=== PATIENT | female | born 1990 | race Hispanic/Latino ===

== ENCOUNTER 2016-11-21 12:56 | Inpatient (IN) | payer MEDICAID ==
--- NOTE | 2016-11-21 15:02 | History and Physical Report ---
History of Present Illness Date of examination: 11/21/16 Date of admission: 11/21/2016 Chief complaint: 26 yo G4 at 29.2weeks presented via EMS with vaginal burning and pressure. History of present illness: 26 yo G4 at 29.2weeks presented via EMS with vaginal burning and pressure. Patient of [employer]. Pt was advised on last Tuesday to present to triage for FFN and pt was unable to do so. Her course is reportedly complicated by epilepsy and Reports seizure as late as yesterday. FFN pending. Nitrazine negative, negative pooling. Past History Past Medical History: hypertension, neurologic, seizure Past Surgical History: no surgical history Social history: no significant social history - Obstetrical History Expected Date of Delivery: 02/04/17 Actual Gestation: 29 Week(s) 3 Day(s) : 4 Medications and Allergies Allergies Allergy/AdvReac Type Severity Reaction Status Date / Time egg Allergy Hives Verified 11/22/16 01:56 milk Allergy Rash Verified 11/22/16 01:56 acetaminophen AdvReac Shortness Verified 11/22/16 01:56 [From Tylenol-Codeine] of Breath codeine phosphate AdvReac Shortness Verified 11/22/16 01:58 [From Tylenol-Codeine] of Breath Home Medications Medication Instructions Recorded Confirmed Last Taken Type Ferrous Sulfate [Feosol 325 MG tab] 325 mg PO BID #60 tablet 04/18/15 Unknown Rx HYDROcodone/APAP 5-325 [[place] 1 each PO Q6HR PRN #30 tablet 04/18/15 Unknown Rx 5/325] Ibuprofen [Motrin] 800 mg PO Q8HR PRN #30 tablet 04/18/15 Unknown Rx Review of Systems All systems: negative - Vital Signs Vital signs: Vital Signs Pulse Pulse Ox 87 98 11/21/16 13:01 11/21/16 13:01 Temp Pulse Resp BP Pulse Ox 64 141/77 99 11/21/16 14:30 11/21/16 13:02 11/21/16 14:30 - Physical Exam Cardiovascular: Regular rate Lungs: Positive: Normal air movement Vagina: Positive: normal moisture Uterus: Positive: enlarged - Obstetrical FHR: category 1 Uterine Contraction Monitor Mode: External Results Result Diagrams: 11/21/16 20:49 11/21/16 20:49 All other labs normal. Assessment and Plan A: IUP 29.2 weeks HX of MS, epilepsy Category 1 tracing No contractions P: Admit to [facility] Neuro consult [facility] consult NICU consult if delivery imminent FFN pending Consulted with Dr. Haywood who will assume care of patient
[2016-11-21] MEDS ORDERED: LACTATED RINGERS 500 ML IV ONE (15:36)
[2016-11-21] MEDS ORDERED: STADOL IV PRN (18:16)
[2016-11-21] MEDS ORDERED: MYLICON PO PRN (18:16)
[2016-11-21] MEDS ORDERED: TYLENOL PO PRN (18:16)
[2016-11-21] MEDS ORDERED: COLACE PO PRN (18:16)
[2016-11-21] MEDS ORDERED: MILK OF MAGNESIA PO PRN (18:16)
[2016-11-21] MEDS ORDERED: BENADRYL PO PRN (18:16)
[2016-11-21 21:09] LABS: Basophils % (Auto) 0.3 % (0.0-1.8); Eosinophils % (Auto) 1.8 % (0.0-4.3); Hematocrit 31.6 % (30.3-42.9); Hemoglobin 10.7 gm/dl (10.1-14.3); Mean Corpuscular HGB Conc 34 % (30-34); Mean Corpuscular Hemoglobin 35 pg (28-32); Mean Corpuscular Volume 102 fl (79-97); Platelet Count 116 K/mm3 (140-440); Red Cell Distribution Width 12.9 % (13.2-15.2); White Blood Count 8.1 K/mm3 (4.5-11.0)
[2016-11-21 21:22] LABS: Albumin 3.2 g/dL (3.9-5); Albumin/Globulin Ratio 1.3 %; Alkaline Phosphatase 78 units/L (35-129); Anion Gap 17 mmol/L; BUN/Creatinine Ratio 13.33; Blood Urea Nitrogen 4 mg/dL (7-17); Calcium 8.6 mg/dL (8.4-10.2); Carbon Dioxide 23 mmol/L (22-30); Chloride 103.8 mmol/L (98-107); Glucose 86 mg/dL (65-100); Potassium 3.5 mmol/L (3.6-5.0); Sodium 140 mmol/L (137-145); Total Protein 5.7 g/dL (6.3-8.2)
[2016-11-21 21:43] LABS: Alanine Aminotransferase < 5 units/L (7-56)
[2016-11-21] MEDS: PERCOCET 5/325 PO PRN (22:16)
[2016-11-21] MEDS: PROzac PO SCH (22:39)
[2016-11-21] MEDS: XANAX PO SCH (23:15)
[2016-11-21] MEDS: LACTATED RINGERS 1,000 ML IV SCH (23:15)
[2016-11-22 00:19] LABS: Bacteria,Urine 1+ /HPF (Negative); Bilirubin,Urine NEG (Negative); Blood,Urine NEG (Negative); Ketones,Urine NEG (Negative); Leukocyte Esterase,Urine SM (Negative); Nitrite,Urine NEG (Negative); Protein,Urine <15 mg/dL mg/dL (Negative); Urobilinogen,Urine < 2.0 mg/dL (<2.0)
--- NOTE | 2016-11-22 06:55 | Admit Criteria Form ---
Admission Criteria Documentation: OBSTETRIC AND GYNECOLOGIC DISEASE GRG Clinical Indications for Admission to Inpatient Care (Place 'X' for any and all applicable criteria): Hospital admission is needed for appropriate care of the patient because of 1 or more of the following (1)(2)(3): [ ]I. Hemodynamic instability, as indicated by 1 or more of the following (1)( 2)(3)(4)(5): [ ]a) Vital signs or other findings not as expected for chronic patient condition or baseline [ ]b) Instability indicated by 1 or more of the following: [ ]i) Hypotension [ ]ii) Symptomatic tachycardia unresponsive to treatment (eg, analgesia, fluids, sedation as indicated) [ ]iii) Inadequate perfusion indicated by 1 or more of the following: [ ]A. Lactic acidosis (greater than 2 mmol/ L) [ ]B. New abnormal capillary refill ( greater than 3 seconds) [ ]C. Reduced urine output [ ]D. New altered mental status [ ]iv) Orthostatic vital sign changes unresponsive to treatment (eg, fluids) [ ]v) Multiple IV fluid boluses required to maintain adequate blood pressure or perfusion [ ]vi) IV inotropic or vasopressor medication required to maintain adequate blood pressure or perfusion [ ]II. Obstetric infection requiring hospitalization indicated by 1 or more of the following(13)(14): [ ]a) Chorioamnionitis [ ]b) Endometritis (except mild endometritis) [ ]c) Pelvic abscess [ ]d) Peritonitis [ ]e) Septic pelvic thrombophlebitis [ ]III. Amniotic fluid or pulmonary embolism(4)(5)(6) [ ]IV. Suspected peritonitis or ectopic requiring monitoring beyond scope of 24 hours or observation care(7)(8) [ ]V. compromise requiring hospitalization indicated by ALL of the following(9)(10): [ ]a) compromise indicated by 1 or more of the following(11): [ ]i) Abnormal heart rate monitoring [ ]ii) Abnormal contraction stress test [ ]iii) Abnormal biophysical profile [ ]iv) Abnormal Doppler flow in vessels (ie, Doppler velocimetry) (12) [ ]b) Persistence of compromise indicators during evaluation and observation monitoring [ ]. Ovarian hyperstimulation syndrome requiring hospitalization[A] indicated by ALL of the following(15): [ ]a) Recent ovarian stimulation with gonadotropins, or evidence on ultrasound of spontaneous emergence of large number of ovarian follicles [ ]b) Evidence of severe ovarian hyperstimulation syndrome indicated by 1 or more of the following: [ ]i) Abdominal pain unresponsive to oral therapy [ ]ii) Acute respiratory distress syndrome [ ]iii) Electrolyte imbalance ( eg, hyponatremia, hyperkalemia) [ ]iv) Elevated liver enzymes [ ]v) Evidence of thromboembolism [ ]vi) Hemoconcentration (hematocrit greater than 45 % (0.45)) [ ]vii) Inability to maintain oral intake adequate to prevent hemoconcentration [ ]viii) Marked hypotension from baseline (eg, SBP 20 mmHg below patients usual pressure) [ ]ix) Oliguria or anuria [ ]x) Ovarian torsion [ ]xi) Pleural or pericardial effusion on x-ray or echocardiogram [ ]xii) Rapid increase in serum creatinine to greater than 1.2 mg/dL (106 micromoles/L) or creatinine clearance less than 50 mL/min/1.73m2 (0.84 mL/ sec/1.73m2) [ ]xiii) Ruptured ovarian cyst with hemorrhage [ ]xiv) Severe abdominal pain or peritoneal signs [ ]xv) Tense ascites that cannot be managed with paracentesis in outpatient setting [ ]VII.Pelvic infection requiring hospitalization indicated by 1 or more of the following (16): [ ]a) Outpatient treatment has failed or is not appropriate (eg, inpatient monitoring required) [ ]b) Pelvic abscess [ ]c) Surgical emergency cannot be excluded (eg, rigid abdomen) [ ]d) Vomiting precluding outpatient and observation care management VIII. loss complications requiring inpatient medical treatment indicated by 1 or more of the following (4)(7)(9): [ ]a) Fever [ ]b) Peritonitis [ ]c) Sepsis [ ]d) Severe abdominal pain [ ]IX. or patient requiring monitoring for severe heart failure, pulmonary disease, or other comorbid condition (eg, peripartum cardiomyopathy) (4)(17) [ ]X. patient with rupture of membranes requiring hospitalization indicated by ANY ONE of the following: [ ]a) Chorioamnionitis, cloudy amniotic fluid, or other evidence of infection [ ]b) compromise or other need for monitoring (11) [ ]c) Gestation longer than 23 weeks and ANY ONE of the following: [ ]i) Abnormal (noncephalic) presentation [ ]ii) Inadequate home environment (eg, home too far from hospital, unable to rapidly return to hospital) [ ]d) Temperature greater than 100.4 degrees F (38 degrees C)( oral) [ ]e) Threatened labor requiring monitoring beyond scope (eg, over 24 hours) of observation Care [ ] XI. complications, including severe lacerations, infections, or retained placenta (19) [ ] XII.Uterine bleeding with high-risk features indicated by ANY ONE of the following (4): [ ]a) Active major hemorrhage (eg, hemorrhage) [ ]b) Coagulopathy with active bleeding [ ]c) Gestational trophoblastic disease (eg, molar ) (20 ) [ ]d) (longer than 23 weeks) and ANY ONE of the following: [ ]i) Pain [ ]ii) Placental abruption, known or suspected [ ]iii) Placenta accrete, known or suspected(21) [ ]iv) Placenta previa, known or suspected [ ]v) Vasa previa [ ]e) Severe anemia [X]XIII. Obstetric or Gynecologic Disease, condition or symptom for which ANY ONE of the following: [ ]a) Emergency and observation care have failed or are not considered appropriate ( Also use General Criteria: Observation Care Criteria as appropriate) [ ]b) Presence of a General Admission Criteria or Pediatric General Admission Criteria The original [facility] [address] content created by [facility] has been revised. The portions of the content which have been revised are identified through the use of italic text or in bold, and [facility] has neither reviewed nor approved the modified material.All other unmodified content is copyright [facility]. Please see references footnoted in the original [facility] edition 2016 Admission Criteria Met: Yes
--- NOTE | 2016-11-22 07:37 | Progress Note ---
Assessment and Plan A: 26-year-old at 29+3 weeks with crampy lower abdominal pain -Cat 1 tracing -FFN neg P: -Consult to [facility] and Neuro already in place -Final disposition after review - Patient Problems (1) 29 weeks gestation of Current Visit: Yes Status: Acute (2) contractions Current Visit: Yes Status: Acute Subjective - Subjective Date of service: 11/22/16 Principal diagnosis: IUP at 29+3 wks Interval history: Assumed care of above patient. Essential history is a patient with 3 weeks of crampy lower abdominal pain. Patient claims pain relieved only by Percocet. She has a history of MS and seizure disorder, it appears she has not had a seizure episode in a while. It appears she does not have a neurologist. In triage, she is not manuel, fibronectin negative. BPP obtained 11/21/2016 has a score of 8 over 8 Patient reports: new complaints, no loss of fluid, no vaginal bleeding, no contractions Objective - Vital Signs Vital Signs: Vital Signs - 12hr 11/21/16 11/21/16 11/21/16 19:35 19:51 21:30 Temperature Pulse Rate 70 48 L Respiratory 18 Rate Blood Pressure 105/57 O2 Sat by Pulse 98 Oximetry 11/21/16 11/21/16 11/21/16 21:35 21:40 21:45 Temperature Pulse Rate 50 L 49 L 58 L Respiratory Rate Blood Pressure O2 Sat by Pulse 97 98 98 Oximetry 11/21/16 11/21/16 11/21/16 21:50 21:55 22:00 Temperature Pulse Rate 56 L 59 L 60 Respiratory Rate Blood Pressure O2 Sat by Pulse 100 100 99 Oximetry 11/21/16 11/21/16 11/21/16 22:07 22:12 22:16 Temperature Pulse Rate 57 L 58 L Respiratory 18 Rate Blood Pressure O2 Sat by Pulse 99 99 Oximetry 11/21/16 11/21/16 11/21/16 22:17 22:22 22:27 Temperature Pulse Rate 59 L 54 L 64 Respiratory Rate Blood Pressure O2 Sat by Pulse 99 100 99 Oximetry 11/21/16 11/21/16 11/21/16 22:32 23:02 23:07 Temperature Pulse Rate 64 63 68 Respiratory Rate Blood Pressure O2 Sat by Pulse 100 98 98 Oximetry 11/21/16 11/21/16 11/21/16 23:12 23:15 23:17 Temperature 98.9 F Pulse Rate 68 65 66 Respiratory Rate Blood Pressure 111/64 O2 Sat by Pulse 97 96 Oximetry 11/21/16 11/21/16 11/21/16 23:22 23:27 23:32 Temperature Pulse Rate 63 65 68 Respiratory Rate Blood Pressure O2 Sat by Pulse 97 97 96 Oximetry 11/21/16 11/21/16 11/21/16 23:37 23:42 23:47 Temperature Pulse Rate 59 L 58 L 60 Respiratory Rate Blood Pressure O2 Sat by Pulse 96 96 95 Oximetry 11/21/16 11/21/16 11/22/16 23:52 23:57 00:02 Temperature Pulse Rate 57 L 58 L 56 L Respiratory Rate Blood Pressure O2 Sat by Pulse 96 96 96 Oximetry 11/22/16 11/22/16 11/22/16 00:07 00:12 00:17 Temperature Pulse Rate 57 L 56 L 61 Respiratory Rate Blood Pressure O2 Sat by Pulse 95 96 95 Oximetry 11/22/16 11/22/16 11/22/16 00:22 00:27 00:32 Temperature Pulse Rate 59 L 60 61 Respiratory Rate Blood Pressure O2 Sat by Pulse 95 95 95 Oximetry 11/22/16 11/22/16 11/22/16 00:37 00:42 00:47 Temperature Pulse Rate 63 57 L 60 Respiratory Rate Blood Pressure O2 Sat by Pulse 95 95 95 Oximetry 11/22/16 11/22/16 11/22/16 00:52 00:57 01:02 Temperature Pulse Rate 65 64 65 Respiratory Rate Blood Pressure O2 Sat by Pulse 95 95 95 Oximetry 11/22/16 11/22/16 11/22/16 01:07 01:12 01:17 Temperature Pulse Rate 65 62 61 Respiratory Rate Blood Pressure O2 Sat by Pulse 95 95 95 Oximetry 11/22/16 11/22/16 11/22/16 01:22 01:27 01:32 Temperature Pulse Rate 61 61 59 L Respiratory Rate Blood Pressure O2 Sat by Pulse 95 95 95 Oximetry 11/22/16 11/22/16 11/22/16 01:37 01:42 01:47 Temperature Pulse Rate 63 61 61 Respiratory Rate Blood Pressure O2 Sat by Pulse 95 95 95 Oximetry 11/22/16 11/22/16 11/22/16 01:52 01:57 02:00 Temperature Pulse Rate 62 61 62 Respiratory Rate Blood Pressure O2 Sat by Pulse 95 95 94 Oximetry 11/22/16 11/22/16 11/22/16 02:02 02:07 02:12 Temperature Pulse Rate 66 61 64 Respiratory Rate Blood Pressure O2 Sat by Pulse 95 95 95 Oximetry 11/22/16 11/22/16 11/22/16 02:17 02:22 02:27 Temperature Pulse Rate 62 62 71 Respiratory Rate Blood Pressure O2 Sat by Pulse 95 95 95 Oximetry 11/22/16 11/22/16 11/22/16 02:32 02:37 02:42 Temperature Pulse Rate 64 62 56 L Respiratory Rate Blood Pressure O2 Sat by Pulse 97 97 97 Oximetry 11/22/16 11/22/16 11/22/16 02:47 02:52 02:57 Temperature Pulse Rate 60 58 L 60 Respiratory Rate Blood Pressure O2 Sat by Pulse 98 98 98 Oximetry 11/22/16 11/22/16 11/22/16 03:02 03:07 03:12 Temperature Pulse Rate 61 61 65 Respiratory Rate Blood Pressure O2 Sat by Pulse 98 97 96 Oximetry 11/22/16 11/22/16 11/22/16 03:17 03:22 03:27 Temperature Pulse Rate 59 L 65 63 Respiratory Rate Blood Pressure O2 Sat by Pulse 97 97 97 Oximetry 11/22/16 11/22/16 11/22/16 03:32 03:37 03:42 Temperature Pulse Rate 65 63 66 Respiratory Rate Blood Pressure O2 Sat by Pulse 96 96 97 Oximetry 11/22/16 11/22/16 11/22/16 03:47 03:52 03:57 Temperature Pulse Rate 63 63 65 Respiratory Rate Blood Pressure O2 Sat by Pulse 99 98 98 Oximetry 11/22/16 11/22/16 11/22/16 04:02 04:07 04:12 Temperature Pulse Rate 73 76 68 Respiratory Rate Blood Pressure O2 Sat by Pulse 97 96 96 Oximetry 11/22/16 11/22/16 11/22/16 04:14 04:15 04:17 Temperature 97.7 F Pulse Rate 73 69 Respiratory Rate Blood Pressure 108/63 O2 Sat by Pulse 95 Oximetry 11/22/16 11/22/16 11/22/16 04:22 04:25 04:27 Temperature Pulse Rate 68 66 66 Respiratory Rate Blood Pressure O2 Sat by Pulse 95 94 96 Oximetry 11/22/16 11/22/16 11/22/16 04:32 04:37 04:42 Temperature Pulse Rate 67 68 76 Respiratory Rate Blood Pressure O2 Sat by Pulse 97 97 97 Oximetry 11/22/16 11/22/16 11/22/16 04:47 04:52 04:57 Temperature Pulse Rate 67 64 63 Respiratory Rate Blood Pressure O2 Sat by Pulse 96 97 96 Oximetry 11/22/16 11/22/16 11/22/16 05:02 05:07 05:12 Temperature Pulse Rate 68 63 66 Respiratory Rate Blood Pressure O2 Sat by Pulse 96 95 96 Oximetry 11/22/16 11/22/16 11/22/16 05:17 05:22 05:27 Temperature Pulse Rate 64 69 64 Respiratory Rate Blood Pressure O2 Sat by Pulse 96 96 97 Oximetry 11/22/16 11/22/16 11/22/16 05:32 05:37 05:42 Temperature Pulse Rate 66 70 61 Respiratory Rate Blood Pressure O2 Sat by Pulse 95 96 96 Oximetry 11/22/16 11/22/16 11/22/16 05:47 05:51 05:52 Temperature Pulse Rate 64 70 71 Respiratory Rate Blood Pressure O2 Sat by Pulse 96 94 95 Oximetry 11/22/16 11/22/16 11/22/16 05:57 06:02 06:03 Temperature Pulse Rate 75 76 77 Respiratory Rate Blood Pressure O2 Sat by Pulse 94 95 94 Oximetry 11/22/16 11/22/16 11/22/16 06:07 06:12 06:17 Temperature Pulse Rate 75 71 70 Respiratory Rate Blood Pressure O2 Sat by Pulse 94 94 95 Oximetry 11/22/16 11/22/16 11/22/16 06:18 06:22 06:27 Temperature Pulse Rate 74 91 H 69 Respiratory Rate Blood Pressure O2 Sat by Pulse 94 94 96 Oximetry 11/22/16 11/22/16 11/22/16 06:32 06:37 06:42 Temperature Pulse Rate 70 67 71 Respiratory Rate Blood Pressure O2 Sat by Pulse 97 97 96 Oximetry 11/22/16 11/22/16 11/22/16 06:43 07:06 07:11 Temperature Pulse Rate 57 L 67 64 Respiratory Rate Blood Pressure O2 Sat by Pulse 94 96 96 Oximetry 11/22/16 11/22/16 11/22/16 07:16 07:21 07:26 Temperature Pulse Rate 64 61 75 Respiratory Rate Blood Pressure O2 Sat by Pulse 96 98 99 Oximetry - Exam Abdomen: Present: normal appearance, soft. Absent: distention, tenderness, guarding, rigidity FHR: category 1 - Labs Labs: Abnormal Labs 11/21/16 11/21/16 20:49 20:49 RBC 3.10 L MCV 102 H MCH 35 H RDW 12.9 L Plt Count 116 L Potassium 3.5 L BUN 4 L Creatinine 0.3 L ALT < 5 L Total Protein 5.7 L Albumin 3.2 L Laboratory Results - last 24 hr 11/21/16 11/21/16 11/21/16 13:55 20:49 20:49 WBC 8.1 RBC 3.10 L Hgb 10.7 Hct 31.6 MCV 102 H MCH 35 H MCHC 34 RDW 12.9 L Plt Count 116 L Lymph % (Auto) 25.9 [place] % (Auto) 4.5 Eos % (Auto) 1.8 Baso % (Auto) 0.3 Lymph # 2.1 [place] # 0.4 Eos # 0.1 Baso # 0.0 Seg Neutrophils % 67.5 Seg Neutrophils # 5.5 Sodium 140 Potassium 3.5 L Chloride 103.8 Carbon Dioxide 23 Anion Gap 17 BUN 4 L Creatinine 0.3 L Estimated GFR > 60 BUN/Creatinine Ratio 13.33 Glucose 86 Calcium 8.6 Total Bilirubin 0.30 AST 10 ALT < 5 L Alkaline Phosphatase 78 Total Protein 5.7 L Albumin 3.2 L Albumin/Globulin Ratio 1.3 Urine Color Urine Turbidity Urine pH Ur Specific Lulu Urine Protein Urine Glucose (UA) Urine Ketones Urine Blood Urine Nitrite Urine Bilirubin Urine Urobilinogen Ur Leukocyte Esterase Urine WBC (Auto) Urine RBC (Auto) Urine Bacteria (Auto) Fibronectin Negative 11/21/16 23:50 WBC RBC Hgb Hct MCV MCH MCHC RDW Plt Count Lymph % (Auto) [place] % (Auto) Eos % (Auto) Baso % (Auto) Lymph # [place] # Eos # Baso # Seg Neutrophils % Seg Neutrophils # Sodium Potassium Chloride Carbon Dioxide Anion Gap BUN Creatinine Estimated GFR BUN/Creatinine Ratio Glucose Calcium Total Bilirubin AST ALT Alkaline Phosphatase Total Protein Albumin Albumin/Globulin Ratio Urine Color Straw Urine Turbidity Clear Urine pH 7.0 Ur Specific Lulu 1.003 Urine Protein <15 mg/dl Urine Glucose (UA) Neg Urine Ketones Neg Urine Blood Neg Urine Nitrite Neg Urine Bilirubin Neg Urine Urobilinogen < 2.0 Ur Leukocyte Esterase Sm Urine WBC (Auto) 1.0 Urine RBC (Auto) 2.0 Urine Bacteria (Auto) 1+ Fibronectin
--- NOTE | 2016-11-22 07:57 | Ultrasound Report ---
ULTRASOUND BIOPHYSICAL PROFILE: History: well being, seizure Technique: Transabdominal ultrasound with Doppler interrogation. 2 - breathing movements 2 - movements 2 - posture and tone 2 - Qualitative amniotic fluid volume 8 - TOTAL SCORE OF POSSIBLE 8 Heart Rate (bpm) 160
[2016-11-22] MEDS: LACTATED RINGERS 1,000 ML IV SCH ×2 (08:12→16:15)
[2016-11-22] MEDS: ZOFRAN IV PRN ×2 (09:02→15:38)
[2016-11-22] MEDS: PROzac PO SCH (11:00)
[2016-11-22] MEDS: PRENATAL VITAMIN PO SCH (11:00)
[2016-11-22] MEDS: PERCOCET 5/325 PO PRN (11:00)
[2016-11-22] MEDS: XANAX PO SCH ×2 (11:03→23:06)
--- NOTE | 2016-11-22 12:34 | Consultation ---
History of Present Illness Reason for consult: other (26 yo G4 at 29.3 weeks presented to [facility] due to seizure Patient of [employer]. Her course is reportedly complicated by epilepsy and MS. Reports seizure as late as 11/20/16 . Patient followed by [facility] for seizure disorder , MS , schizophrenia , and panic attack . Patient under medical intervention On [facility] visit 09/07/[address] Scales for neurology and behavior health consult was requested . Denies VB, LOF, VB, and regular contraction . In additon patient denies SI/HI. Reports AFM) Past History Past Medical History: hypertension, neurologic, seizure Past Surgical History: no surgical history - Obstetrical History : 4 Medications and Allergies Allergies Allergy/AdvReac Type Severity Reaction Status Date / Time egg Allergy Hives Verified 11/22/16 01:56 milk Allergy Rash Verified 11/22/16 01:56 acetaminophen AdvReac Shortness Verified 11/22/16 01:56 [From Tylenol-Codeine] of Breath codeine phosphate AdvReac Shortness Verified 11/22/16 01:58 [From Tylenol-Codeine] of Breath Home Medications Medication Instructions Recorded Confirmed Last Taken Type Ferrous Sulfate [Feosol 325 MG tab] 325 mg PO BID #60 tablet 04/18/15 Unknown Rx HYDROcodone/APAP 5-325 [[place] 1 each PO Q6HR PRN #30 tablet 04/18/15 Unknown Rx 5/325] Ibuprofen [Motrin] 800 mg PO Q8HR PRN #30 tablet 04/18/15 Unknown Rx Active Meds: Active Medications Acetaminophen (Tylenol) 650 mg PO Q4H PRN PRN Reason: Pain MILD(1-3)/Fever >100.5/PORTILLO Alprazolam (Xanax) 2 mg PO BID COUNT INCLUDES THE [facility] Last Admin: 11/22/16 11:03 Dose: 2 mg Butorphanol Tartrate (Stadol) 1 mg IV Q2HR PRN PRN Reason: Labor Pain Last Admin: 11/21/16 19:51 Dose: 1 mg Diphenhydramine HCl (Benadryl) 25 mg PO Q6H PRN PRN Reason: Itching Docusate Sodium (Colace) 100 mg PO Q12H PRN PRN Reason: Constipation Fluoxetine HCl (Prozac) 20 mg PO QDAY COUNT INCLUDES THE [facility] Last Admin: 11/22/16 11:00 Dose: 20 mg Lactated Ringer's (Lactated Ringers) 1,000 mls @ 125 mls/hr IV DIRECT NICK Last Admin: 11/22/16 08:12 Dose: 125 mls/hr Magnesium Hydroxide (Milk Of Magnesia) 30 ml PO QHS PRN PRN Reason: Laxative Effect Multivitamins/Iron/Calcium ( Vitamin) 1 each PO QDAY NICK Last Admin: 11/22/16 11:00 Dose: 1 each Ondansetron HCl (Zofran) 4 mg IV Q6H PRN PRN Reason: Nausea And Vomiting Last Admin: 11/22/16 09:02 Dose: 4 mg Oxycodone/Acetaminophen (Percocet 5/325) 2 tab PO Q6H PRN PRN Reason: Pain, Moderate (4-6) Last Admin: 11/22/16 11:00 Dose: 2 tab Simethicone (Mylicon) 80 mg PO Q6H PRN PRN Reason: Gas pain Review of Systems Constitutional: no fever, no chills Eyes: no blurred vision Ears, nose, mouth and throat: no decreased hearing Cardiovascular: no chest pain, no palpitations, no rapid/irregular heart beat, no edema, no syncope, no shortness of breath Respiratory: no shortness of breath Breasts: deferred Gastrointestinal: no nausea, no vomiting Genitourinary: no vaginal bleeding, no vaginal discharge, no leakage of fluid Rectal Exam: deferred Musculoskeletal: no low back pain Integumentary: no rash Neurological: other (MS) Psychiatric: other, no suicidal ideation (History of schizophrenia and panic disorder ) Endocrine: no flushing Hematologic/Lymphatic: no easy bruising, no easy bleeding Allergic/Immunologic: no wheezing - Vital Signs Vital signs: Vital Signs Pulse Pulse Ox 87 98 11/21/16 13:01 11/21/16 13:01 Temp Pulse Resp BP Pulse Ox 97.5 F L 74 18 105/59 100 11/22/16 08:16 11/22/16 10:51 11/22/16 11:00 11/22/16 08:16 11/22/16 10:51 - Physical Exam Breasts: Positive: deferred Cardiovascular: Regular rate Abdomen: Negative: tenderness, guarding Uterus: Positive: other (gravid ). Negative: tender Deep Tendon Reflex Grade: Normal +2 (right lower extremity) - Obstetrical FHR: category 1 Uterine Contraction Monitor Mode: Palpation (non palable) Results Result Diagrams: 11/21/16 20:49 11/21/16 20:49 Abnormal lab results 11/21/16 11/21/16 Range/Units 20:49 20:49 RBC 3.10 L (3.65-5.03) M/mm3 MCV 102 H (79-97) fl MCH 35 H (28-32) pg RDW 12.9 L (13.2-15.2) % Plt Count 116 L (140-440) K/mm3 Potassium 3.5 L (3.6-5.0) mmol/L BUN 4 L (7-17) mg/dL Creatinine 0.3 L (0.7-1.2) mg/dL ALT < 5 L (7-56) units/L Total Protein 5.7 L (6.3-8.2) g/dL Albumin 3.2 L (3.9-5) g/dL All other labs normal. Ultrasound: image reviewed ([facility] 11/21/16 BPP 01/18 + FHT of 160 ) Assessment and Plan A: 1. IUP 29.3 weeks 2. History of seizure disorder under medical invention last reported seizure was 11/20/16 3. History of MS 4. History of Schizophrenia 5. History of panic disorder 6. Not being followed by Neurology 7. Not being [facility] by [facility] 9. Negative FFN P: 1. In agreement with Neurology consult 2. In addition patient to have mental salome consult while in patient 3. Patient to continue current medical regimen pending Neurology 4. U/S ordered to inc EFW , ALONSO, and placenta anatomy
--- NOTE | 2016-11-22 13:57 | Event Note ---
Date: 11/22/16 Consult to Psych placed per [facility] recommendation. Discussed permanent sterilization with pt in event of . Explained this should be considered permanent. Explained she can change her mind at any time. Provided tubal consent papers for her review and signature.
--- NOTE | 2016-11-22 14:52 | Ultrasound Report ---
OB ULTRASOUND History: well-being, seizure disorder. Technique: Transabdominal ultrasound with Doppler interrogation. Gestation: Single Position: Cephalic Amniotic Fluid: Normal ALONSO = 14.2 cm Placenta: Fundal, right lateral Placental Grade: 2 Heart Rate: 127 BPM Cervical length: 3.5 cm (Normal > 3 cm) NEUROANATOMY VISUALIZED: Choroid Plexus Cisterna Magnum Cerebellum Lateral Ventricle ANATOMY VISUALIZED: Stomach Kidneys Bladder Diaphragm 4 Chamber Heart Heart 3 Vessel Cord Abd. Cord Insert SPINE VISUALIZED: Longitudinal Transverse BPD: 7.5 cm = 30 w 1 d HC: 28.0 cm = 30 w 5 d AC: 25.1 cm = 29 w 2 d FL: 5.6 cm = 29 w 4 d HC/AC Ratio: 1.12 Cephalic Index: 74.9 Estimated Weight: 1426 grams Clinical age = 29 w 2 d EDC: 02/05/17 US Gest. Age = 30 w 30 d EDC: 01/31/17
[2016-11-23] MEDS: LACTATED RINGERS 1,000 ML IV SCH ×2 (00:16→08:33)
[2016-11-23] MEDS: PERCOCET 5/325 PO PRN ×2 (00:17→09:42)
[2016-11-23] MEDS: PROzac PO SCH (09:45)
[2016-11-23] MEDS: PRENATAL VITAMIN PO SCH (09:51)
[2016-11-23] MEDS: XANAX PO SCH (09:55)
--- NOTE | 2016-11-23 10:15 | Progress Note ---
Assessment and Plan A: 26-year-old at 29+4 weeks with crampy lower abdominal pain -Cat 1 tracing -FFN neg P: -APA consult reviewed, thanks -Await Consult from Psych and Neuro -Will stop Percocet and Stadol at this time -Final disposition after review - Patient Problems (1) 29 weeks gestation of Current Visit: Yes Status: Acute (2) contractions Current Visit: Yes Status: Acute Subjective - Subjective Date of service: 11/23/16 Principal diagnosis: IUP at 29+4 wks Interval history: Patient seen and examined, stable. Still complains of intermittent abdominal pain. She is also still on Percocet for her MS No other OB issues History of being seen by psych yesterday, awake to notes to review Patient reports: new complaints, movement normal, no loss of fluid, no vaginal bleeding, no contractions Objective - Vital Signs Vital Signs: Vital Signs - 12hr 11/22/16 11/22/16 11/22/16 22:12 22:14 22:17 Temperature Pulse Rate 68 70 62 Pulse Rate [ From Monitor] Respiratory Rate Blood Pressure Blood Pressure [Right Arm] O2 Sat by Pulse 95 94 95 Oximetry 11/22/16 11/22/16 11/22/16 22:20 22:22 22:27 Temperature Pulse Rate 66 63 59 L Pulse Rate [ From Monitor] Respiratory Rate Blood Pressure Blood Pressure [Right Arm] O2 Sat by Pulse 94 95 96 Oximetry 11/22/16 11/22/16 11/22/16 22:32 22:37 22:42 Temperature Pulse Rate 62 59 L 61 Pulse Rate [ From Monitor] Respiratory Rate Blood Pressure Blood Pressure [Right Arm] O2 Sat by Pulse 96 96 96 Oximetry 11/22/16 11/22/16 11/22/16 22:47 22:52 22:57 Temperature Pulse Rate 58 L 87 59 L Pulse Rate [ From Monitor] Respiratory Rate Blood Pressure Blood Pressure [Right Arm] O2 Sat by Pulse 96 94 96 Oximetry 11/22/16 11/22/16 11/22/16 23:02 23:07 23:12 Temperature Pulse Rate 61 63 64 Pulse Rate [ From Monitor] Respiratory Rate Blood Pressure Blood Pressure [Right Arm] O2 Sat by Pulse 96 97 98 Oximetry 11/22/16 11/22/16 11/22/16 23:19 23:20 23:25 Temperature Pulse Rate 58 L 66 Pulse Rate [ From Monitor] Respiratory Rate Blood Pressure Blood Pressure [Right Arm] O2 Sat by Pulse 94 99 99 Oximetry 11/22/16 11/22/16 11/22/16 23:30 23:35 23:40 Temperature Pulse Rate 66 59 L 65 Pulse Rate [ From Monitor] Respiratory Rate Blood Pressure Blood Pressure [Right Arm] O2 Sat by Pulse 98 99 100 Oximetry 11/22/16 11/22/16 11/22/16 23:45 23:50 23:55 Temperature Pulse Rate 63 64 66 Pulse Rate [ From Monitor] Respiratory Rate Blood Pressure Blood Pressure [Right Arm] O2 Sat by Pulse 97 98 98 Oximetry 11/23/16 11/23/16 11/23/16 00:00 00:05 00:09 Temperature Pulse Rate 63 63 68 Pulse Rate [ From Monitor] Respiratory Rate Blood Pressure 105/55 Blood Pressure [Right Arm] O2 Sat by Pulse 98 97 Oximetry 11/23/16 11/23/16 11/23/16 00:10 00:13 00:15 Temperature 98.6 F Pulse Rate 65 58 L Pulse Rate [ From Monitor] Respiratory 18 Rate Blood Pressure Blood Pressure [Right Arm] O2 Sat by Pulse 98 99 Oximetry 11/23/16 11/23/16 11/23/16 00:17 00:20 00:25 Temperature Pulse Rate 63 70 Pulse Rate [ From Monitor] Respiratory 20 Rate Blood Pressure Blood Pressure [Right Arm] O2 Sat by Pulse 99 99 Oximetry 11/23/16 11/23/16 11/23/16 00:30 00:35 00:40 Temperature Pulse Rate 71 71 61 Pulse Rate [ From Monitor] Respiratory Rate Blood Pressure Blood Pressure [Right Arm] O2 Sat by Pulse 99 99 98 Oximetry 11/23/16 11/23/16 11/23/16 00:45 00:50 00:55 Temperature Pulse Rate 77 72 69 Pulse Rate [ From Monitor] Respiratory Rate Blood Pressure Blood Pressure [Right Arm] O2 Sat by Pulse 98 97 97 Oximetry 11/23/16 11/23/16 11/23/16 01:00 01:05 01:10 Temperature Pulse Rate 66 75 63 Pulse Rate [ From Monitor] Respiratory Rate Blood Pressure Blood Pressure [Right Arm] O2 Sat by Pulse 97 97 97 Oximetry 11/23/16 11/23/16 11/23/16 01:15 01:20 01:25 Temperature Pulse Rate 83 57 L 64 Pulse Rate [ From Monitor] Respiratory Rate Blood Pressure Blood Pressure [Right Arm] O2 Sat by Pulse 97 96 97 Oximetry 11/23/16 11/23/16 11/23/16 01:30 01:35 01:40 Temperature Pulse Rate 65 64 63 Pulse Rate [ From Monitor] Respiratory Rate Blood Pressure Blood Pressure [Right Arm] O2 Sat by Pulse 96 97 96 Oximetry 11/23/16 11/23/16 11/23/16 01:45 01:50 01:55 Temperature Pulse Rate 61 63 62 Pulse Rate [ From Monitor] Respiratory Rate Blood Pressure Blood Pressure [Right Arm] O2 Sat by Pulse 96 96 96 Oximetry 11/23/16 11/23/16 11/23/16 02:00 02:05 02:10 Temperature Pulse Rate 62 59 L 63 Pulse Rate [ From Monitor] Respiratory Rate Blood Pressure Blood Pressure [Right Arm] O2 Sat by Pulse 96 96 96 Oximetry 11/23/16 11/23/16 11/23/16 02:15 02:20 02:25 Temperature Pulse Rate 75 60 65 Pulse Rate [ From Monitor] Respiratory Rate Blood Pressure Blood Pressure [Right Arm] O2 Sat by Pulse 96 96 96 Oximetry 11/23/16 11/23/16 11/23/16 02:30 02:35 02:40 Temperature Pulse Rate 62 63 67 Pulse Rate [ From Monitor] Respiratory Rate Blood Pressure Blood Pressure [Right Arm] O2 Sat by Pulse 96 96 95 Oximetry 11/23/16 11/23/16 11/23/16 02:45 02:50 02:55 Temperature Pulse Rate 67 65 65 Pulse Rate [ From Monitor] Respiratory Rate Blood Pressure Blood Pressure [Right Arm] O2 Sat by Pulse 96 96 95 Oximetry 11/23/16 11/23/16 11/23/16 03:00 03:05 03:10 Temperature Pulse Rate 66 66 60 Pulse Rate [ From Monitor] Respiratory Rate Blood Pressure Blood Pressure [Right Arm] O2 Sat by Pulse 96 96 96 Oximetry 11/23/16 11/23/16 11/23/16 03:15 03:20 03:25 Temperature Pulse Rate 60 62 63 Pulse Rate [ From Monitor] Respiratory Rate Blood Pressure Blood Pressure [Right Arm] O2 Sat by Pulse 96 96 96 Oximetry 11/23/16 11/23/16 11/23/16 03:30 03:35 03:40 Temperature Pulse Rate 62 64 66 Pulse Rate [ From Monitor] Respiratory Rate Blood Pressure Blood Pressure [Right Arm] O2 Sat by Pulse 96 96 96 Oximetry 11/23/16 11/23/16 11/23/16 03:45 03:50 03:55 Temperature Pulse Rate 71 74 72 Pulse Rate [ From Monitor] Respiratory Rate Blood Pressure Blood Pressure [Right Arm] O2 Sat by Pulse 96 95 95 Oximetry 11/23/16 11/23/16 11/23/16 04:00 04:05 04:08 Temperature Pulse Rate 71 69 75 Pulse Rate [ From Monitor] Respiratory Rate Blood Pressure Blood Pressure [Right Arm] O2 Sat by Pulse 95 95 94 Oximetry 11/23/16 11/23/16 11/23/16 04:09 04:10 04:13 Temperature 98.0 F Pulse Rate 62 74 Pulse Rate [ From Monitor] Respiratory 18 Rate Blood Pressure 94/54 Blood Pressure [Right Arm] O2 Sat by Pulse 97 Oximetry 11/23/16 11/23/16 11/23/16 04:15 04:20 04:25 Temperature Pulse Rate 64 62 61 Pulse Rate [ From Monitor] Respiratory Rate Blood Pressure Blood Pressure [Right Arm] O2 Sat by Pulse 97 97 96 Oximetry 11/23/16 11/23/16 11/23/16 04:30 04:35 04:40 Temperature Pulse Rate 60 60 63 Pulse Rate [ From Monitor] Respiratory Rate Blood Pressure Blood Pressure [Right Arm] O2 Sat by Pulse 97 97 97 Oximetry 11/23/16 11/23/16 11/23/16 04:45 04:50 04:55 Temperature Pulse Rate 71 58 L 61 Pulse Rate [ From Monitor] Respiratory Rate Blood Pressure Blood Pressure [Right Arm] O2 Sat by Pulse 97 97 97 Oximetry 11/23/16 11/23/16 11/23/16 05:00 05:05 05:10 Temperature Pulse Rate 58 L 59 L 64 Pulse Rate [ From Monitor] Respiratory Rate Blood Pressure Blood Pressure [Right Arm] O2 Sat by Pulse 97 97 97 Oximetry 11/23/16 11/23/16 11/23/16 05:15 05:20 05:25 Temperature Pulse Rate 64 62 67 Pulse Rate [ From Monitor] Respiratory Rate Blood Pressure Blood Pressure [Right Arm] O2 Sat by Pulse 97 96 97 Oximetry 11/23/16 11/23/16 11/23/16 05:30 05:35 05:40 Temperature Pulse Rate 62 64 61 Pulse Rate [ From Monitor] Respiratory Rate Blood Pressure Blood Pressure [Right Arm] O2 Sat by Pulse 97 97 97 Oximetry 11/23/16 11/23/16 11/23/16 05:45 05:50 05:55 Temperature Pulse Rate 62 55 L 70 Pulse Rate [ From Monitor] Respiratory Rate Blood Pressure Blood Pressure [Right Arm] O2 Sat by Pulse 97 97 96 Oximetry 11/23/16 11/23/16 11/23/16 06:00 06:05 06:10 Temperature Pulse Rate 73 64 64 Pulse Rate [ From Monitor] Respiratory Rate Blood Pressure Blood Pressure [Right Arm] O2 Sat by Pulse 96 96 96 Oximetry 11/23/16 11/23/16 11/23/16 06:15 06:20 06:25 Temperature Pulse Rate 74 65 62 Pulse Rate [ From Monitor] Respiratory Rate Blood Pressure Blood Pressure [Right Arm] O2 Sat by Pulse 97 97 97 Oximetry 11/23/16 11/23/16 11/23/16 06:30 06:35 06:40 Temperature Pulse Rate 69 56 L 70 Pulse Rate [ From Monitor] Respiratory Rate Blood Pressure Blood Pressure [Right Arm] O2 Sat by Pulse 97 97 97 Oximetry 11/23/16 11/23/16 11/23/16 09:26 09:30 09:31 Temperature 97.3 F L Pulse Rate 66 69 Pulse Rate [ 67 From Monitor] Respiratory 20 Rate Blood Pressure 99/54 Blood Pressure 99/54 [Right Arm] O2 Sat by Pulse 98 98 Oximetry 11/23/16 11/23/16 09:36 09:42 Temperature Pulse Rate 74 Pulse Rate [ From Monitor] Respiratory 20 Rate Blood Pressure Blood Pressure [Right Arm] O2 Sat by Pulse 99 Oximetry - Exam Abdomen: Present: normal appearance, soft. Absent: distention, tenderness, guarding, rigidity - Labs Labs: Abnormal Labs 11/21/16 11/21/16 20:49 20:49 RBC 3.10 L MCV 102 H MCH 35 H RDW 12.9 L Plt Count 116 L Potassium 3.5 L BUN 4 L Creatinine 0.3 L ALT < 5 L Total Protein 5.7 L Albumin 3.2 L
[2016-11-23 11:54] VITALS: BP 111/54
--- NOTE | 2016-11-23 12:53 | Consultation ---
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 She reports convulsions w/ LOC. She was reportedly Dx seizure in 2014 after first seizure in 2013. She was Dx w/ MS based on LE shooting pain ? MRI findings in the past and never placed on immunomodulatory agents. Pt does state she saw Dr. Sanon in the past but poor follow up d/t insurance and limited therapeutic interventions as she has been for most of last 3 years. She reports desire to be on an AED. Past History Past Medical History: seizures, other (MS) Past Surgical History: No surgical history Social history: no significant social history. denies: alcohol abuse, prescription drug abuse, IV drug use Family history: other (father w/ seizures) Medications and Allergies Allergies Allergy/AdvReac Type Severity Reaction Status Date / Time egg Allergy Hives Verified 11/22/16 01:56 milk Allergy Rash Verified 11/22/16 01:56 acetaminophen AdvReac Shortness Verified 11/22/16 01:56 [From Tylenol-Codeine] of Breath codeine phosphate AdvReac Shortness Verified 11/22/16 01:58 [From Tylenol-Codeine] of Breath Home Medications Medication Instructions Recorded Confirmed Last Taken Type Ferrous Sulfate [Feosol 325 MG tab] 325 mg PO BID #60 tablet 04/18/15 Unknown Rx HYDROcodone/APAP 5-325 [[place] 1 each PO Q6HR PRN #30 tablet 04/18/15 Unknown Rx 5/325] Ibuprofen [Motrin] 800 mg PO Q8HR PRN #30 tablet 04/18/15 Unknown Rx Active Meds: Active Medications Acetaminophen (Tylenol) 650 mg PO Q4H PRN PRN Reason: Pain MILD(1-3)/Fever >100.5/PORTILLO Alprazolam (Xanax) 2 mg PO BID NICK Last Admin: 11/23/16 09:55 Dose: 2 mg Diphenhydramine HCl (Benadryl) 25 mg PO Q6H PRN PRN Reason: Itching Docusate Sodium (Colace) 100 mg PO Q12H PRN PRN Reason: Constipation Fluoxetine HCl (Prozac) 20 mg PO QDAY [facility] Last Admin: 11/23/16 09:45 Dose: 20 mg Lactated Ringer's (Lactated Ringers) 1,000 mls @ 125 mls/hr IV DIRECT NICK Last Admin: 11/23/16 08:33 Dose: 125 mls/hr Levetiracetam (Keppra) 500 mg PO BID [facility] Magnesium Hydroxide (Milk Of Magnesia) 30 ml PO QHS PRN PRN Reason: Laxative Effect Multivitamins/Iron/Calcium ( Vitamin) 1 each PO QDAY [facility] Last Admin: 11/23/16 09:51 Dose: 1 each Ondansetron HCl (Zofran) 4 mg IV Q6H PRN PRN Reason: Nausea And Vomiting Last Admin: 11/22/16 15:38 Dose: 4 mg Simethicone (Mylicon) 80 mg PO Q6H PRN PRN Reason: Gas pain Review of Systems All systems: negative Constitutional: weight gain, fatigue, weakness Neurological: head injury, weakness, parathesias, numbness, tingling, syncope, headaches, convulsions, change in mentation, confusion, memory loss, balance difficulties, gait dysfunction, motor disturbance, sensory deficit, no change in speech, no double vision, no loss of vision Physical Examination - Vital Signs Vital Signs: Vital Signs Pulse Pulse Ox 87 98 11/21/16 13:01 11/21/16 13:01 - Constitutional General appearance: comfortable - EENT EENT: Present: ATNC, PERRL, mucous membranes moist, hearing intact, vision intact - Respiratory Respiratory: Present: chest non-tender, normal breath sounds, no respiratory distress - Cardiovascular Cardiovascular: Present: regular rate Extremities: Present: no peripheral edema bilatateraly, no clubbing, cyanosis, no inflammation, no ischemia or petechiae - Gastrointestinal Gastrointestinal: Present: normoactive bowel sounds, soft, non-distended - Integumentary Integumentary: Present: normal - Neurologic Cranial nerve examination: PERRL, EOMI, VFF, V1/V2/V3 grossly intact, face symmetric, tongue midline, intact, intact shoulder shrug, Intact Vestibulo- ocular r, intact corneal reflex, normal palatal elevation Speech examination: intact Sensorimotor examination: intact Motor examination - right side: 5/5: biceps, triceps, wrist flexion, wrist extension, corporate technical recruiter, hip flexors, knee extensors, dorsiflexion, toe extension (EHL) , plantarflexion Motor examination - left side: 3/5: dorsiflexion, toe extension (EHL), 5/5: biceps, triceps, wrist flexion, wrist extension, corporate technical recruiter, hip flexors, knee extensors, plantarflexion Detailed sensory examination: temperature (diminished on LLE-baseline) Reflex and gait examination: intact Reflexes: 2+: ankle, bicep, knee, tricep - Musculoskeletal Musculoskeletal: Present: no fluid collection, no pain, normal range of motion - Psychiatric Psychiatric: Present: mood/affect appropriate, cooperative Results - Laboratory Findings CBC and BMP: 11/21/16 20:49 11/21/16 20:49 Abnormal Lab Findings: Abnormal Labs 11/21/16 11/21/16 20:49 20:49 RBC 3.10 L MCV 102 H MCH 35 H RDW 12.9 L Plt Count 116 L Potassium 3.5 L BUN 4 L Creatinine 0.3 L ALT < 5 L Total Protein 5.7 L Albumin 3.2 L Assessment and Plan 26 YO F Hx reportedly Dx MS by Dr. Sanon in 2015 d/t LE shooting pain Tx only w/ pain meds ? work up and never on immunomodulatory agents and also Hx of reported Seizure disorder w/ both "epileptic" and "narcoleptic" seizure but not on AED beyond Xanax, Schizophrenia and panic disorder currently 30 weeks a/w reported GTC w/ LOC seizure on 11/20. Pt does state she has had poor follow up as outpt in the past w/ neurology d/t insurance and limited therapeutic interventions as she has been for most of last 3 years. I am not clear if any of her neurologic diagnoses are true. 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 She reports desire to be on an AED which may be reasonable from safety perspective until further follow up. I have discussed 2-3% risk of adverse effects on AED and she consents to treatment. P roni and Recommendation: 1. Telemetry bed w/ Q4 hour neuro checks & Sz precautions 2. Defer MRI Brain +/- Gregg Seizure Protocol & Routine awake and drowsy EEG to outpt 3. Labs: Serum/Urine Tox, UA/UCx, Electrolytes especially Na, Ca, Mg, and Glucose, TSH/Vit B12/Ammonia and correct as necessary 4. Cont Infectious work up/medical management for UTI, PNA, cellulitis, bacteremia, etc. 5. Avoid hyponatremia, hypo/hyper-calcemia, hypo/hyperglycemia, acidosis, hypoxia/hypoxemia, hypercarbia/hypercapnia 6. Avoid institution of any psychoactive medications (e.g. antihistamines, anticholinergics, BZD, hypnotics, opiates) as able unless low doses of low potency antipsychotic needed for behavioral issues complicating medical care 7. AED therapy: Start Keppra 500mg BID 8. Avoid meds that can lower sz threshold e.g. Tramadol, fluroquinolones, carbapenems 9. If Hx obtained to suggest EtOH dependence, supplement Thiamine, Folate and cont CIWA Protocol 10. Pt advised of [place] driving regulations: report date of presumed Seizure/ unexplained loss of consciousness/awareness spell to [facility], refrain from operating a motor vehicle for 6 months after this date, and avoid unsupervised activity particularly around water or heights 11. Neurologically clear for discharge w/ outpt f/u [facility] pending
[2016-11-23] MEDS ORDERED: KEPPRA PO SCH (13:00)
[2016-11-23] MEDS ORDERED: TYLENOL #3 PO PRN (14:22)
--- NOTE | 2016-11-23 14:55 | Event Note ---
Date: 11/23/16 Patient has been seen by both neurology and psych services. She has been cleared for discharge home. Discussed above with patient, advised of discharge home. She is aware of need to follow up with [facility] on an outpatient basis.
--- NOTE | 2016-11-23 15:02 | Discharge Summary ---
Providers - Providers Date of Admission: 11/21/16 18:16 Date of discharge: 11/23/16 Attending physician: TAYO GOODWIN MD 11/21/16 18:25 Consult to Physician [CONS] Routine Consulting Provider: ANTHONY HITCHCOCK Reason For Exam: Seizures Place consult to:: answering service Notified:: DELANEY @ ANSWERING SERVICE Phone number called:: [phone] Was contact made?: Yes If yes, spoke with:: DELANEY Time called:: 07:40 11/21/16 19:14 Consult to Physician [CONS] Urgent Consulting Provider: JACQUE TYSON Reason For Exam: seizure Place consult to:: Dr. Ridge Omalley Notified:: answering service Phone number called:: [phone] 11/22/16 13:22 Consult to Case Management [CONS] Urgent Services Needed at Discharge: Burglary Investigator Notified:: yes 11/22/16 13:23 psychiatry consult [Consult to Mental Health] [CONS] Urgent Reason For Exam: 30 wks with hx of schizophrenioa Place consult to:: yes Notified:: yes 11/23/16 09:47 Consult to Physician [CONS] Routine Consulting Provider: RIDGE OMALLEY Reason For Exam: 30 wks with a history of seizures Place consult to:: Notified:: YES Phone number called:: [phone] Was contact made?: Yes If yes, spoke with:: OFFICE Time called:: 00:00 Primary care physician: TAYO GOODWIN MD Hospitalization Reason for admission: IUP - , other (history of seizure disorder, crampy abdominal pain, Schizophrenia) Discharge diagnosis: other (IUP at 29+3 wks with hx of seizure D/O and Schizophrenia) Pertinent studies: BPP Growth scan Hospital course: 26 yo G4 at 29.3 weeks presented to [facility] due to seizure Patient of [employer]. Her course is reportedly complicated by epilepsy and MS. Reports seizure as late as 11/20/16 . Patient followed by [facility] for seizure disorder , MS , schizophrenia , and panic attack . Patient under medical intervention On [facility] visit 09/07/[address] Scales for neurology and behavior health consult was requested . Denies VB, LOF, VB, and regular contraction . In additon patient denies SI/HI. Reports AFM She was admitted to the floor for observation. Seizure episode while on admission. She continued to request narcotic medication, was started on Percocet. Percocet was discontinued on 11/23/2012 She was seen by MFM on consult basis. She had growth scan and BPP: Growth scan on 11/22/2016 shows estimated weight 1426 g, ultrasound age is 30 weeks 3 days consistent with clinical age of 29 weeks 2 days. Placenta is fundal right lateral, cervical length was 3.5 cm, cephalic presentation.. BPP was 8 out of 8 on 11/22/2011 She was seen by neurology consult basis: 26 YO F Hx reportedly Dx MS by Dr. Sanon in 2014 d/t LE shooting pain Tx only w/ pain meds ? work up and never on immunomodulatory agents and also Hx of reported Seizure disorder w/ both "epileptic" and "narcoleptic" seizure but not on AED beyond Xanax, Schizophrenia and panic disorder currently 30 weeks a/w reported GTC w/ LOC seizure on 11/20. Pt does state she has had poor follow up as outpt in the past w/ neurology d/t insurance and limited therapeutic interventions as she has been for most of last 3 years. I am not clear if any of her neurologic diagnoses are true. 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 She reports desire to be on an AED which may be reasonable from safety perspective until further follow up. I have discussed 2-3% risk of adverse effects on AED and she consents to treatment. P roni and Recommendation: 1. Telemetry bed w/ Q4 hour neuro checks & Sz precautions 2. Defer MRI Brain +/- Gregg Seizure Protocol & Routine awake and drowsy EEG to outpt 3. Labs: Serum/Urine Tox, UA/UCx, Electrolytes especially Na, Ca, Mg, and Glucose, TSH/Vit B12/Ammonia and correct as necessary 4. Cont Infectious work up/medical management for UTI, PNA, cellulitis, bacteremia, etc. 5. Avoid hyponatremia, hypo/hyper-calcemia, hypo/hyperglycemia, acidosis, hypoxia/hypoxemia, hypercarbia/hypercapnia 6. Avoid institution of any psychoactive medications (e.g. antihistamines, anticholinergics, BZD, hypnotics, opiates) as able unless low doses of low potency antipsychotic needed for behavioral issues complicating medical care 7. AED therapy: Start Keppra 500mg BID 8. Avoid meds that can lower sz threshold e.g. Tramadol, fluroquinolones, carbapenems 9. If Hx obtained to suggest EtOH dependence, supplement Thiamine, Folate and cont CIWA Protocol 10. Pt advised of [place] driving regulations: report date of presumed Seizure/ unexplained loss of consciousness/awareness spell to [facility], refrain from operating a motor vehicle for 6 months after this date, and avoid unsupervised activity particularly around water or heights 11. Neurologically clear for discharge w/ outpt f/u [facility] pending She was seen by psych on consult basis and cleared for discharge Pt was assessed 11/22/16 at 14:21; she present depressed over psychosocial issues (residential struggles) after being evicted from her Mom's home. Pt denies any SI/HI or psychosis. Pt does not meet IP criteria and can be discharged once medically cleared. SDM Discussed all above with the patient and she'll be discharged home. Condition at discharge: Good Disposition: DC-01 TO HOME OR SELFCARE - Discharge Diagnoses (1) 29 weeks gestation of Status: Acute (2) contractions Status: Resolved (3) Schizophrenia Status: Acute Qualifiers: Schizophrenia type: S Plan - Discharge Medications Prescriptions: Folic Acid [Folvite] 1 mg PO QDAY #30 tablet levETIRAcetam [Keppra TAB] 500 mg PO BID #60 tablet - Provider Discharge Summary Activity: no sex for 6 weeks, no heavy lifting 4 weeks, no strenuous exercise Diet: routine Instructions: other (follow neurology and psychiatry recommendations) Additional instructions: [] Smoking cessation referral if applicable(refer to patient education folder for contact #) [] Refer to [facility] Booklet Call your doctor immediately for: * Fever > 100.5 * Heavy vaginal bleeding ( >1 pad per hour) * Severe persistent headache * Shortness of breath * Reddened, hot, painful area to leg or breast * Drainage or odor from incision. * Keep incision clean and dry at all times and follow doctor's instructions regarding bathing/showering - Follow up plan Follow up: TAYO MCMILLAN MD [Primary Care Provider] - 7 Days [facility] [Provider Group] - 7 Days Forms: Work/School Release Form
== END 2016-11-23 16:30 | disposition home or self-care (01) | DRG 781 ==
LOC: TRG 12:56 → LD 17:45 → OBSVTOIN 18:16
PROVIDERS: ADMIT Obstetrics & Gynecology; ATTEND Obstetrics & Gynecology
DX: O99.353 Diseases of the nervous system complicating pregnancy, third trimester (principal); G40.909 Epilepsy, unspecified, not intractable, without status epilepticus; F20.9 Schizophrenia, unspecified; G35 Multiple sclerosis; F41.0 Panic disorder [episodic paroxysmal anxiety]; O16.3 Unspecified maternal hypertension, third trimester; O99.343 Other mental disorders complicating pregnancy, third trimester; O60.03 Preterm labor without delivery, third trimester; O62.4 Hypertonic, incoordinate, and prolonged uterine contractions; Z3A.29 29 weeks gestation of pregnancy; Z88.5 Allergy status to narcotic agent; Z91.012 Allergy to eggs; Z91.011 Allergy to milk products
CPT/HCPCS: 36415; 76805; 76819; 80053; 81001; 82731; 85025; J0595; J2405; J7120

== ENCOUNTER 2016-12-05 11:05 | Outpatient (CLI) | payer MEDICAID ==
[2016-12-05] MEDS ORDERED: LACTATED RINGERS 500 ML IV ONE (11:13)
[2016-12-05 13:16] VITALS: BP 104/49
--- NOTE | 2016-12-05 13:49 | Ultrasound Report ---
OBSTETRICAL ULTRASOUND: 12/05/16 11:51:00 CLINICAL:Fall on 12/04/16. COMPARISON:11/22/16 Gestation: [place] Position: Cephalic Amniotic Fluid: Within normal limits. ALONSO = 14.9. Placenta: Posterior fundal and left lateral with no signs of abruption or previa. Heart Rate: 131 BPM No anomalies identified. However, a complete survey was not performed. Measurements: BPD: 8.4 cm = 33 w 5 d HC: 30.9 cm = 34 w 3 d AC: 27.7 cm = 31 w 5 d FL: 6.0 cm = 31 w 1 d HC/AC Ratio: 1.12 Cephalic Index: 78.3 Estimated Weight: 1877 grams IMPRESSION: Single living intrauterine fetus at approximately 32 weeks, 3 days based on prior sonogram. EDC based on the previous ultrasound is 01/31/17. EDC based on current measurements is 01/25/17. This six day discrepancy in growth may or may not be significant. Recommend followup to monitor for growth. No evidence of placental abruption.
--- NOTE | 2016-12-05 13:50 | Ultrasound Report ---
BIOPHYSICAL PROFILE: 12/05/16 11:05:00 CLINICAL: Check well being FINDINGS: The biophysical profile was scored as followin - breathing movements 2 - movements 2 - posture and tone 2 - Qualitative amniotic fluid volume 8 - TOTAL SCORE OF POSSIBLE 8 Heart Rate (bpm) = 126 IMPRESSION: Normal study
== END 2016-12-05 14:50 | disposition home or self-care (01) ==
LOC: TRG 11:05
PROVIDERS: ATTEND Obstetrics & Gynecology
DX: O26.893 Other specified pregnancy related conditions, third trimester (principal); O47.03 False labor before 37 completed weeks of gestation, third trimester; W19.XXXA Unspecified fall, initial encounter; Y93.89 Activity, other specified; Y92.89 Other specified places as the place of occurrence of the external cause; Y99.8 Other external cause status; Z87.891 Personal history of nicotine dependence; Z3A.32 32 weeks gestation of pregnancy
CPT/HCPCS: 36415; 59025; 76816; 76819; 96360; J7120

== ENCOUNTER 2017-01-22 17:25 | Inpatient (IN) | payer MEDICAID, OTHER ==
[2017-01-22] MEDS ORDERED: LACTATED RINGERS 1,000 ML ONE (17:59)
[2017-01-22] MEDS ORDERED: BRETHINE SUB-Q PRN (18:00)
[2017-01-22] MEDS ORDERED: ePHEDrine SULFATE IV PRN ×2 (18:00→20:08)
[2017-01-22] MEDS ORDERED: BRETHINE IVP PRN (18:00)
[2017-01-22] MEDS ORDERED: XYLOCAINE 2% INFILTRATI ONE (18:00)
[2017-01-22] MEDS ORDERED: MINERAL OIL PO PRN (18:00)
[2017-01-22] MEDS ORDERED: PITOCin/NS 20 UNIT/1000ML DRIP 20 UNITS/1,000 ML BAG IV SCH (18:00)
[2017-01-22] MEDS ORDERED: LACTATED RINGERS 1,000 ML IV SCH (18:00)
--- NOTE | 2017-01-22 18:16 | History and Physical Report ---
History of Present Illness Date of examination: 01/22/17 Date of admission: 01/22/17 17:27 Chief complaint: Regular contractions; labor History of present illness: 26 year old grand multipara presents to triage on active labor. Pt. denies vaginal bleeding. Pt. reports active movement. 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: herpes (Patient denies outbreaks or prodromal symptoms) Family/Genetic History: none Social history: single, prescription drug abuse - Obstetrical History Expected Date of Delivery: 02/03/17 Actual Gestation: 38 Week(s) 2 Day(s) : 8 Para: 3 Hx # Term Pregnancies: 3 Number of Pregnancies: 0 Medications and Allergies Allergies Allergy/AdvReac Type Severity Reaction Status Date / Time egg Allergy Hives Verified 11/22/16 01:56 milk Allergy Rash Verified 11/22/16 01:56 acetaminophen AdvReac Shortness Verified 11/22/16 01:56 [From Tylenol-Codeine] of Breath codeine phosphate AdvReac Shortness Verified 11/22/16 01:58 [From Tylenol-Codeine] of Breath Home Medications Medication Instructions Recorded Confirmed Last Taken Type Ferrous Sulfate [Feosol 325 MG tab] 325 mg PO BID #60 tablet 04/18/15 12/05/16 1 Day Ago Rx Folic Acid [Folvite] 1 mg PO QDAY #30 tablet 11/23/16 12/05/16 1 Day Ago Rx levETIRAcetam [Keppra TAB] 500 mg PO BID #60 tablet 11/23/16 12/05/16 12/05/16 Rx ALPRAZolam [Xanax TAB] 1 mg PO BID PRN 12/05/16 12/05/16 12/05/16 History FLUoxetine [PROzac] 20 mg PO QDAY 12/05/16 12/05/16 2 Weeks Ago History Active Meds: Active Medications Ephedrine Sulfate (Ephedrine Sulfate) 10 mg IV Q2M PRN PRN Reason: Hypotension Stop: 01/22/17 18:05 Lactated Ringer's (Lactated Ringers) 1,000 mls @ 125 mls/hr IV DIRECT NICK Oxytocin/Sodium Chloride (Pitocin/Ns 20 Unit/1000ml Drip) 20 units in 1,000 mls @ 125 mls/hr IV DIRECT NICK Lidocaine (Xylocaine 2%) 20 ml INFILTRATI ONCE ONE Stop: 01/22/17 18:01 Mineral Oil (Mineral Oil) 30 ml PO QHS PRN PRN Reason: Constipation Terbutaline Sulfate (Brethine) 0.25 mg SUB-Q ONCE PRN PRN Reason: Hyperstimulation/Hypertonicity Stop: 01/22/17 18:01 Terbutaline Sulfate (Brethine) 0.25 mg IVP ONCE PRN PRN Reason: Hyperstimulation/Hypertonicity Stop: 01/22/17 18:01 Review of Systems Constitutional: chronic headaches Eyes: deferred Ears, nose, mouth and throat: deferred Cardiovascular: rapid/irregular heart beat, no chest pain Respiratory: no cough Breasts: deferred, no mass, no discharge Gastrointestinal: abdominal pain, no nausea Genitourinary: deferred, contractions, no vaginal bleeding, no vaginal discharge , no genital sores Rectal Exam: deferred Neurological: headaches - Vital Signs Vital signs: Vital Signs Pulse Pulse Ox 78 97 01/22/17 17:36 01/22/17 17:36 Temp Pulse Resp BP Pulse Ox 84 125/68 95 01/22/17 17:51 01/22/17 17:49 01/22/17 17:51 - Physical Exam Breasts: Positive: deferred Cardiovascular: Regular rate, No murmurs Lungs: Positive: Clear to auscultation Abdomen: Positive: normal appearance, soft, normal bowel sounds. Negative: distention, tenderness, guarding Genitourinary (Female): Negative: normal external genitalia, perineal/vulvar lesions Cervix: Positive: other (5/100/-1) Uterus: Positive: enlarged Extremities: Positive: normal. Negative: tenderness, edema Results Result Diagrams: 01/22/17 17:50 All other labs normal. Assessment and Plan A: at 38 weeks and 2 days gestation; labor. History of seizure disorder: on medications. GBS negative P: Admit. Epidural if desired. Expect . - Patient Problems (1) 29 weeks gestation of Current Visit: No Status: Acute
[2017-01-22 18:48] LABS: Hematocrit 36.9 % (30.3-42.9); Hemoglobin 12.5 gm/dl (10.1-14.3); Mean Corpuscular HGB Conc 34 % (30-34); Mean Corpuscular Hemoglobin 34 pg (28-32); Mean Corpuscular Volume 100 fl (79-97); Platelet Count 105 K/mm3 (140-440); Red Cell Distribution Width 13.1 % (13.2-15.2); White Blood Count 14.2 K/mm3 (4.5-11.0)
[2017-01-22] MEDS ORDERED: ePHEDrine SULFATE ONE (18:49)
[2017-01-22] MEDS ORDERED: NARCAN 2 MG/2 ML IV PRN (20:08)
--- NOTE | 2017-01-22 20:08 | Anesthesia Consultation ---
Anesthesia Consult and Med Hx Date of service: 01/22/17 - Airway Anesthetic Teeth Evaluation: Good ROM Head & Neck: Adequate Mental/Hyoid Distance: Adequate Mallampati Class: Class II Intubation Access Assessment: Probably Good - Pulmonary Exam CTA: Yes - Cardiac Exam Cardiac Exam: RRR - Pre-Operative Health Status ASA Pre-Surgery Classification: ASA2 Proposed Anesthetic Plan: Epidural - Pulmonary Hx Asthma: Yes COPD: No Hx Pneumonia: No - Cardiovascular System Hx Hypertension: No - Central Nervous System Hx Seizures: Yes (keppra) Hx Psychiatric Problems: Yes (anxiety) - Endocrine Hx Renal Disease: No Hx End Stage Renal Disease: No Hx Hypothyroidism: No Hx Hyperthyroidism: No - Hematic Hx Anemia: No Hx Sickle Cell Disease: No - Other Systems Hx Alcohol Use: No
[2017-01-22 20:21] LABS: Urine Drugs of Abuse Note Disclamer
[2017-01-22] MEDS ORDERED: ZOFRAN IV ONE (20:34)
[2017-01-22] MEDS ORDERED: fentaNYL-BUPIV 2 MCG/ML-0.125% 200 MCG/100 ML BAG EPIDURAL SCH (21:00)
[2017-01-22] MEDS ORDERED: VALTREX PO SCH (22:00)
[2017-01-22] MEDS ORDERED: CYTOTEC ONE (22:09)
[2017-01-22] MEDS ORDERED: SUBLIMAZE ONE ×2 (22:45→23:18)
--- NOTE | 2017-01-22 22:51 | Anesthesia Day of Surgery ---
Anesthesia Day of Surgery - Day of Surgery Patient Examined: Yes Patient H&P Reviewed: Yes Patient is NPO: Yes
[2017-01-22] MEDS ORDERED: ANCEF/STERILE WATER 2 GM/20 ML IV ONE (22:58)
[2017-01-22] MEDS ORDERED: ANCEF/STERILE WATER 2 GM/20 ML 2 GM/20 ML SYRINGE IV ONE (23:03)
[2017-01-22] MEDS ORDERED: VERSED ONE (23:04)
[2017-01-22] MEDS ORDERED: XYLOCAINE MPF 2% ONE (23:10)
[2017-01-22] MEDS ORDERED: VERSED IV ONE (23:19)
--- NOTE | 2017-01-22 23:20 | Procedure Note ---
OB Delivery Note - Delivery Date of Delivery: 01/22/17 Surgeon: TAYO HAYWOOD Estimated blood loss: 500cc - Vaginal Delivery induction: none Delivery augmentation: rupture of membranes Delivery monitor: external FHT, external uterine Route of delivery: Delivery placenta: manual Delivery cord: 3 umbilical vessels Episiotomy: none Delivery laceration: none Anesthesia: epidural Delivery comments: Spontaneous vaginal delivery of liveborn male infant over intact perineum weighing 6 lb. 3 oz with apgars of 9/9 at 2148. Epidural anesthesia. Retained placenta after delivery; Dr. Haywood called to the bedside and pt. was taken to OR for manual removal of placenta.
[2017-01-22] MEDS ORDERED: METHERGINE IM ONE ×2 (23:22→23:34)
[2017-01-22] MEDS ORDERED: WATER FOR IRRIG STERILE IR ONE (23:30)
[2017-01-22] MEDS ORDERED: CYTOTEC PR ONE (23:34)
[2017-01-22] MEDS ORDERED: ZOFRAN IV PRN (23:44)
[2017-01-22] MEDS ORDERED: LANSINOH TP PRN (23:44)
[2017-01-22] MEDS ORDERED: DULCOLAX PR PRN (23:44)
[2017-01-22] MEDS ORDERED: TUCKS PAD TP PRN (23:44)
--- NOTE | 2017-01-22 23:44 | Operative Report ---
Operative Report Operative Report: PREOPERATIVE DIAGNOSIS: 1. Status post normal spontaneous vaginal delivery 2. Retained placenta POSTOPERATIVE DIAGNOSIS: Same OPERATIVE PROCEDURE: 1. Manual extraction of placenta under anesthesia 2. Dilatation and curettage. SURGEON: Lalo Haywood MD ANESTHESIA: Epidural ANESTHESIOLOGIST: Dr. Tiara Aoyn ESTIMATED BLOOD LOSS: 150 mL's FINDINGS: A 20 week size uterus with retained placenta completely removed on mental extraction. COMPLICATIONS: None COUNTS: Correct x3. PROCEDURE: After the patient was correctly identified, and after a satisfactory level of epidural anesthesia was administered, the patient was prepped and draped in the usual sterile fashion and placed in dorsal lithotomy position. First, the bladder was emptied using a straight catheter. Next, a speculum was placed in the vaginal vault and the anterior lip of the cervix was grasped using ring forceps. The uterus was explored manually, and the placenta grasped and removed in several fragments. A 14 mm vaccurette was used to suction blood and products of conception from the uterine cavity. After all the products of conception were removed, the procedure was considered complete. 800 g of Cytotec was placed in the rectum, and 0.2 IM of Methergine was given to achieve hemostasis. All instruments were removed from the vagina. The patient tolerated the procedure well and was transferred to the recovery room in stable condition.
[2017-01-22] MEDS ORDERED: SODIUM CHLORIDE FLUSH SYRINGE 10 ML IV NR (23:45)
[2017-01-23] MEDS ORDERED: fentaNYL-BUPIV 2 MCG/ML-0.125% 200 MCG/100 ML BAG EPIDURAL ONE (02:03)
[2017-01-23] MEDS ORDERED: SUBLIMAZE IV ONE (02:06)
[2017-01-23] MEDS ORDERED: ceFAZolin 2 GM in NACL 0.9% 100 ML IV ONE (02:06)
[2017-01-23] MEDS ORDERED: ANCEF/STERILE WATER 2 GM/20 ML 2 GM/20 ML SYRINGE IV ONE (04:00)
[2017-01-23] MEDS: MOTRIN PO SCH ×3 (05:00→18:42)
[2017-01-23] MEDS: METHERGINE PO SCH ×3 (06:25→21:54)
[2017-01-23 09:03] LABS: Hematocrit 30.3 % (30.3-42.9); Hemoglobin 10.4 gm/dl (10.1-14.3); Mean Corpuscular HGB Conc 34 % (30-34); Mean Corpuscular Hemoglobin 34 pg (28-32); Mean Corpuscular Volume 100 fl (79-97); Red Blood Count 3.04 M/mm3 (3.65-5.03); Red Cell Distribution Width 13.2 % (13.2-15.2); White Blood Count 14.4 K/mm3 (4.5-11.0)
[2017-01-23 09:08] LABS: Platelet Count 97 K/mm3 (140-440)
--- NOTE | 2017-01-23 10:54 | Progress Note ---
Assessment and Plan A: day 1 S/P ; S/P D&C after retained placenta P: Will supplement with iron; anticipate discharge tomorrow. - Patient Problems (1) 29 weeks gestation of Current Visit: No Status: Acute Subjective - Subjective Date of service: 01/23/17 Principal diagnosis: day 1 S/P Interval history: 26 year old grand multipara presents to triage on active labor. Pt. denies vaginal bleeding. Pt. reports active movement. Patient reports: appetite normal, voiding normally, ambulating normally [place]: doing well, bottle feeding Objective - Vital Signs Latest vital signs: Vital Signs Temp Pulse Resp BP Pulse Ox 01/23/17 09:36 98.3 F 64 20 109/52 01/23/17 04:00 98.6 F 81 16 121/81 01/23/17 00:45 56 L 14 98/46 100 01/23/17 00:40 58 L 14 101/52 97 01/23/17 00:35 52 L 13 109/59 97 01/23/17 00:30 59 L 13 104/64 97 01/23/17 00:25 54 L 12 101/56 97 01/23/17 00:20 61 14 104/56 97 01/23/17 00:15 56 L 13 103/58 97 01/23/17 00:10 59 L 12 102/56 97 01/23/17 00:05 60 11 L 103/57 97 01/23/17 00:00 58 L 11 L 98/55 100 01/22/17 23:55 64 12 103/51 98 01/22/17 23:50 64 11 L 98/57 97 01/22/17 23:45 61 13 102/53 98 01/22/17 23:40 61 10 L 93/63 99 01/22/17 23:39 98 01/22/17 23:38 98.0 F 01/22/17 23:30 98.6 F 82 16 110/56 01/22/17 22:51 65 113/60 01/22/17 22:49 68 97 01/22/17 22:44 89 98 01/22/17 22:39 75 99 01/22/17 22:36 70 93/54 01/22/17 22:34 77 98 01/22/17 22:29 81 99 01/22/17 22:24 76 99 01/22/17 22:20 70 113/65 01/22/17 22:19 70 99 01/22/17 22:13 63 98 01/22/17 22:10 58 L 111/67 01/22/17 22:08 98.2 F 66 18 115/68 99 01/22/17 22:05 66 115/68 01/22/17 22:04 59 L 99 01/22/17 21:52 62 108/71 01/22/17 21:40 78 98 01/22/17 21:36 63 125/62 97 01/22/17 21:30 60 100 01/22/17 21:26 65 98 01/22/17 21:21 57 L 126/64 01/22/17 21:20 67 99 01/22/17 21:15 61 100 01/22/17 21:10 62 99 01/22/17 21:06 67 116/67 01/22/17 21:05 70 99 01/22/17 21:00 66 99 01/22/17 20:55 74 99 01/22/17 20:50 66 99 01/22/17 20:45 69 99 01/22/17 20:40 67 99 01/22/17 20:36 75 99 01/22/17 20:34 68 114/60 01/22/17 20:32 78 121/62 01/22/17 20:31 72 99 01/22/17 20:30 65 110/56 01/22/17 20:29 75 112/56 01/22/17 20:27 86 115/62 01/22/17 20:25 102 H 99 01/22/17 20:23 83 142/79 01/22/17 20:20 74 111/65 99 01/22/17 20:18 83 112/67 01/22/17 20:16 88 108/64 01/22/17 20:15 79 99 01/22/17 20:14 87 109/62 01/22/17 20:12 91 H 107/56 01/22/17 20:10 85 114/63 99 01/22/17 20:08 81 112/61 01/22/17 20:06 82 111/56 01/22/17 20:05 92 H 99 01/22/17 20:04 80 125/65 01/22/17 20:02 78 125/72 01/22/17 20:00 65 116/67 99 01/22/17 19:59 75 112/73 01/22/17 19:56 75 118/67 01/22/17 19:55 76 98 01/22/17 19:54 76 108/61 01/22/17 19:52 71 114/65 01/22/17 19:50 76 119/68 99 01/22/17 19:45 70 99 01/22/17 19:41 64 128/72 01/22/17 19:40 67 98 01/22/17 19:17 63 100 01/22/17 19:15 97.6 F 67 20 128/73 01/22/17 18:16 97.7 F 60 18 117/71 01/22/17 18:10 75 117/71 01/22/17 17:51 84 95 01/22/17 17:49 83 125/68 01/22/17 17:46 86 95 01/22/17 17:41 76 96 01/22/17 17:36 78 97 Intake and Output 01/22/17 01/23/17 01/23/17 22:59 06:59 14:59 Intake Total 1975 Output Total 800 Balance 1175 Intake: IV 1425 Left Hand 125 Oral 250 Intake, Free Water 300 Output: Urine 800 Void 800 Other: Total, Intake Amount 250 Total, Output Amount 800 # Voids Void 1 Weight 83.461 kg - Exam Breasts: Present: deferred Cardiovascular: Present: Regular rate, No murmurs Lungs: Present: Clear to auscultation Abdomen: Present: normal appearance, soft, normal bowel sounds. Absent: distention, tenderness, guarding Uterus: Present: normal, firm, fundal height below umbilicus Extremities: Present: normal - Labs Labs: Abnormal lab results 01/22/17 01/23/17 Range/Units 17:50 08:19 WBC 14.2 H 14.4 H (4.5-11.0) K/mm3 RBC 3.04 L (3.65-5.03) M/mm3 MCV 100 H 100 H (79-97) fl MCH 34 H 34 H (28-32) pg RDW 13.1 L (13.2-15.2) % Plt Count 105 L 97 L (140-440) K/mm3
[2017-01-23] MEDS: FEOSOL PO SCH (13:35)
[2017-01-23] MEDS: PRENATAL VITAMIN PO SCH (13:38)
[2017-01-23] MEDS: FLAGYL PO SCH ×2 (13:40→21:54)
[2017-01-23] MEDS: NORCO 5/325 PO PRN ×2 (13:45→21:53)
[2017-01-24] MEDS: MOTRIN PO SCH ×3 (00:02→12:17)
[2017-01-24] MEDS: METHERGINE PO SCH ×2 (06:12→13:59)
[2017-01-24] MEDS: NORCO 5/325 PO PRN ×2 (06:13→13:59)
--- NOTE | 2017-01-24 09:20 | Progress Note ---
Assessment and Plan A: PPD #2 - stable P; Discharge home today Subjective - Subjective Date of service: 01/24/17 Principal diagnosis: day 2 S/P Patient reports: appetite normal [place]: doing well Objective - Vital Signs Latest vital signs: Vital Signs Temp Pulse Resp BP 01/24/17 08:06 97.6 F 70 20 106/64 01/24/17 06:13 18 01/24/17 06:12 18 01/24/17 03:00 98.3 F 58 L 18 96/52 01/24/17 00:26 98.1 F 56 L 18 88/54 01/23/17 21:53 18 01/23/17 16:28 97.9 F 61 18 92/47 01/23/17 09:36 98.3 F 64 20 109/52 Intake and Output 01/23/17 01/24/17 01/24/17 22:59 06:59 14:59 Intake Total 240 480 Balance 240 480 Intake: Intake, Free Water 240 480 Other: # Voids Void 1 1 - Exam Breasts: Present: deferred Cardiovascular: Present: Regular rate Lungs: Present: Clear to auscultation Abdomen: Present: soft Vulva: both: normal Uterus: Present: fundal height below umbilicus Deep Tendon Reflex Grade: Normal +2
--- NOTE | 2017-01-24 09:22 | Discharge Summary ---
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 Notified:: yes Phone number called:: [phone] Was contact made?: Yes If yes, spoke with:: left mess Time called:: 02:15 Additional Physician Instructions: pt states she has limited resources for infant Primary care physician: TAYO GOODWIN MD Hospitalization Reason for admission: active labor Delivery: Episiotomy: none Laceration: none complications: retained placenta (D & C) Discharge diagnosis: IUP at term delivered baby: male Condition at discharge: Good Disposition: DC-01 TO HOME OR SELFCARE Plan - Provider Discharge Summary Activity: routine, no sex for 6 weeks, no strenuous exercise Diet: routine Instructions: routine Additional instructions: [] Smoking cessation referral if applicable(refer to patient education folder for contact #) [] Refer to [facility] Booklet Call your doctor immediately for: * Fever > 100.5 * Heavy vaginal bleeding ( >1 pad per hour) * Severe persistent headache * Shortness of breath * Reddened, hot, painful area to leg or breast * Drainage or odor from incision. * Keep incision clean and dry at all times and follow doctor's instructions regarding bathing/showering - Follow up plan Follow up: [facility] [Provider Group] - 6 Weeks
[2017-01-24] MEDS: FLAGYL PO SCH (10:26)
[2017-01-24] MEDS: FEOSOL PO SCH (10:26)
[2017-01-24] MEDS: PRENATAL VITAMIN PO SCH (12:14)
[2017-01-24] MEDS ORDERED: BOOSTRIX IM ONE (12:31)
[2017-01-24 12:53] VITALS: BP 100/60
== END 2017-01-24 15:30 | disposition home or self-care (01) | DRG 767 ==
LOC: TRG 17:25 → LD 17:27 → OB 01-23 01:23
PROVIDERS: ADMIT Obstetrics & Gynecology; ATTEND Obstetrics & Gynecology
PROC: 10D17ZZ Extraction of Products of Conception, Retained, Via Natural or Artificial Opening (ICD-10-PCS; principal; 2017-01-22)
PROC: 10E0XZZ Delivery of Products of Conception, External Approach (ICD-10-PCS; 2017-01-22)
PROC: 3E0S3CZ (ICD-10-PCS; 2017-01-22)
PROC: 00HU33Z Insertion of Infusion Device into Spinal Canal, Percutaneous Approach (ICD-10-PCS; 2017-01-22)
DX: O99.354 Diseases of the nervous system complicating childbirth (principal); O99.52 Diseases of the respiratory system complicating childbirth; O99.344 Other mental disorders complicating childbirth; G35 Multiple sclerosis; G43.909 Migraine, unspecified, not intractable, without status migrainosus; Z90.49 Acquired absence of other specified parts of digestive tract; G40.802 Other epilepsy, not intractable, without status epilepticus; J45.909 Unspecified asthma, uncomplicated; F41.9 Anxiety disorder, unspecified; Z88.5 Allergy status to narcotic agent; Z91.012 Allergy to eggs; Z91.011 Allergy to milk products; Z3A.38 38 weeks gestation of pregnancy; Z37.0 Single live birth; O73.0 Retained placenta without hemorrhage
CPT/HCPCS: 36415; 80307; 85014; 85018; 85027; 86592; 86850; 86900; 86901; 88307; 90471; 90715; J0690; J2210; J2250; J2405; J2590; J3010; J7120

== ENCOUNTER 2019-10-04 16:41 | Outpatient (CLI) | payer OTHER ==
[2019-10-04 18:03] LABS: Bacteria,Urine 1+ /HPF (Negative); Bilirubin,Urine NEG (Negative); Blood,Urine NEG (Negative); Color,Urine Yellow (Yellow); Mucus,Urine FEW /HPF; Protein,Urine <15 mg/dL mg/dL (Negative); RBC,Urine < 1.0 /HPF (0.0-6.0); Urobilinogen,Urine < 2.0 mg/dL (<2.0)
[2019-10-04 18:19] LABS: Hematocrit 32.6 % (30.3-42.9); Hemoglobin 10.9 gm/dl (10.1-14.3); Mean Corpuscular HGB Conc 33 % (30-34); Mean Corpuscular Volume 98 fl (79-97); Platelet Count 117 K/mm3 (140-440); Red Blood Count 3.32 M/mm3 (3.65-5.03); Red Cell Distribution Width 12.7 % (13.2-15.2)
[2019-10-04 18:45] LABS: Uric Acid 3.8 mg/dL (3.5-7.6)
[2019-10-04 18:47] LABS: Alanine Aminotransferase < 5 units/L (7-56)
[2019-10-04 20:26] VITALS: BP 111/57
== END 2019-10-04 20:40 | disposition home or self-care (01) ==
LOC: TRG 16:41 → APU 16:42 → TRG 20:40
PROVIDERS: ATTEND Obstetrics & Gynecology
DX: O26.893 Other specified pregnancy related conditions, third trimester (principal); M54.5 Low back pain; M79.606 Pain in leg, unspecified; R10.30 Lower abdominal pain, unspecified; Z3A.36 36 weeks gestation of pregnancy
CPT/HCPCS: 36415; 81001; 82565; 83615; 84450; 84460; 84550; 85027

== ENCOUNTER 2019-11-04 15:23 | Inpatient (IN) | payer OTHER ==
[2019-11-04] MEDS ORDERED: LACTATED RINGERS 1,000 ML IV SCH (17:00)
[2019-11-04] MEDS ORDERED: BUTALB/ACETAMINOPHEN/CAFFEINE TAB PO ONE (17:18)
[2019-11-04 17:22] LABS: Basophils % (Auto) 0.2 % (0.0-1.8); Eosinophils % (Auto) 0.4 % (0.0-4.3); Hematocrit 31.7 % (30.3-42.9); Hemoglobin 10.6 gm/dl (10.1-14.3); Lymphocytes # (Auto) 1.4 K/mm3 (1.2-5.4); Lymphocytes % (Auto) 20.4 % (13.4-35.0); Mean Corpuscular HGB Conc 34 % (30-34); Mean Corpuscular Volume 97 fl (79-97); Monocytes # (Auto) 0.3 K/mm3 (0.0-0.8); Platelet Count 100 K/mm3 (140-440); Red Blood Count 3.29 M/mm3 (3.65-5.03); Red Cell Distribution Width 14.1 % (13.2-15.2)
[2019-11-04 17:46] LABS: Alanine Aminotransferase < 5 units/L (7-56)
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
[2019-11-04 19:03] LABS: Bilirubin,Urine NEG (Negative); Blood,Urine NEG (Negative); Color,Urine Yellow (Yellow); Mucus,Urine FEW /HPF; Protein,Urine <15 mg/dL mg/dL (Negative); Urobilinogen,Urine < 2.0 mg/dL (<2.0); WBC,Urine < 1.0 /HPF (0.0-6.0)
[2019-11-04 19:09] LABS: Amphetamine Screen,Urine PRESUMPTIVE NEGATIVE; Benzodiazepines Screen,Urine PRESUMPTIVE NEGATIVE; Cannabinoid Screen,Urine PRESUMPTIVE NEGATIVE; Cocaine Screen,Urine PRESUMPTIVE NEGATIVE; Methadone Screen,Urine PRESUMPTIVE NEGATIVE; Opiate Screen,Urine PRESUMPTIVE NEGATIVE
[2019-11-04] MEDS ORDERED: LORazepam 2 MG/ML VIAL IV PRN (19:16)
[2019-11-04] MEDS ORDERED: LORazepam 2 MG/ML VIAL ONE (19:19)
--- NOTE | 2019-11-04 19:36 | History and Physical Report ---
History of Present Illness Date of examination: 11/04/19 (Dr Perez notified of seizure) History of present illness: EDC Confirmation: 11/21/2019 Gestational Age: 33 2/7 weeks Past History : 6 Term Births: 4 Premature Births: 0 Living Children: 4 Para: 4 Mult. Births: 0 Prev : 0 Prev. attempt? 0 Aborta: 1 Elect. Ab: 0 Spont. Ab: 1 # 1 Delivery date: 2005 Weeks Gestation: term labor: no Delivery type: Delivery location: [facility] Sex: Male weight: 6#7oz Comments: complicated by drug use (pain meds & Anxiety meds) # 2 Delivery date: 2009 Weeks Gestation: term labor: no Delivery type: Delivery location: [facility] Infant Sex: Female weight: 7#13 Comments: complicated by drug use (pain meds & Anxiety meds) # 3 Delivery date: 2015 Weeks Gestation: term labor: no Delivery type: Delivery location: [facility] Infant Sex: Female weight: 6#9 Comments: complicated by drug use (pain meds & Anxiety meds) # 4 Delivery date: 2017 Weeks Gestation: term labor: no Delivery type: Delivery location: [facility] Sex: Male weight: 6# Comments: complicated by drug use (pain meds & Anxiety meds) Past Medical History: Dismissed from [facility] 07/2019 Seizure dx; on ra, seizures brought on by anxiety - managed by PCP Dr. Horne MS - managed by pain management Dr. Rodriguez Lupus - managed by PCP Dr. 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 of genital herpes: yes Partner hx. of genital herpes: no Rash, Viral, or Febrile illness since last LMP? no Varicella/Chicken Pox Status: Previous Disease TB Risk: no Genetic History Congenital Heart Defect: Mom: no Dad: no Lana Disease: Mom: no Dad: no Thalassemia Mom: no Dad: no Neural Tube Defect Mom: no Dad: no Down's Syndrome Mom: no Dad: no Al-Sachs Mom: no Dad: no Sickle Cell Disease/Trait Mom: no Dad: no Hemophilia Mom: no Dad: no Muscular Dystrophy Mom: no Dad: no Cystic Fibrosis Mom: no Dad: no Loc Chorea Mom: no Dad: no Mental Retardation Mom: no Dad: no Fragile X Mom: no Dad: no Other Genetic/Chromosomal Disorder Mom: no Dad: no Child w/other defect Mom: no Dad: no Enviromental Exposures Xray Exposure: no Medication, drug, or alcohol use since LMP: no Chemical/Other Exposure: yes Exposure to Cat Liter: no Occupational Exposure to Children: none Comments: percocet keppra Current Allergies (reviewed today): milk,eggs,acetaminophen, codeine Past History Past Medical History: seizure Social history: single - Obstetrical History Expected Date of Delivery: 11/26/19 Actual Gestation: 36 Week(s) 6 Day(s) : 6 Para: 4 Hx # Term Pregnancies: 4 Number of Pregnancies: 0 Spontaneous Abortions: 1 Induced : 0 Number of Living Children: 4 Medications and Allergies Allergies Allergy/AdvReac Type Severity Reaction Status Date / Time egg Allergy Hives Verified 11/22/16 01:56 milk Allergy Rash Verified 11/22/16 01:56 acetaminophen AdvReac Shortness Verified 11/22/16 01:56 [From Tylenol-Codeine] of Breath codeine phosphate AdvReac Shortness Verified 11/22/16 01:58 [From Tylenol-Codeine] of Breath Home Medications Medication Instructions Recorded Confirmed Last Taken Type RX: Ferrous Sulfate [Feosol 325 MG 325 mg PO BID #60 tablet 04/18/15 01/22/17 10/03/19 22:00 Rx tab] 1 RX: Folic Acid [Folvite] 1 mg PO QDAY #30 tablet 11/23/16 01/22/17 10/04/19 09:00 Rx 1 ALPRAZolam [Xanax TAB] 2 mg PO TID PRN 12/05/16 01/22/17 10/03/19 22:00 History FLUoxetine [PROzac] 40 mg PO QDAY 12/05/16 01/22/17 10/03/19 22:00 History 1 levETIRAcetam [Keppra TAB] 1,500 mg PO BID 01/22/17 01/22/17 10/04/19 19:00 History 1500 Active Meds: Active Medications Lactated Ringer's (Lactated Ringers) 1,000 mls @ 125 mls/hr IV DIRECT NICK Last Admin: 11/04/19 17:35 Dose: 1,200 mls/hr Documented by: Levetiracetam (Keppra) 1,500 mg PO BID NICK Lorazepam (Ativan) 2 mg IV Q1H PRN PRN Reason: Agitation - Vital Signs Vital signs: Vital Signs Temp Pulse Resp BP 97.6 F 90 18 111/55 11/04/19 16:00 11/04/19 16:00 11/04/19 16:00 11/04/19 16:00 Temp Pulse Resp BP Pulse Ox 97.6 F 102 H 18 113/54 100 11/04/19 16:00 11/04/19 19:28 11/04/19 16:00 11/04/19 19:28 11/04/19 19:27 - Physical Exam Breasts: Positive: deferred Cardiovascular: Regular rate, Normal S1, Normal S2 Lungs: Positive: Clear to auscultation Abdomen: Positive: normal appearance, soft, normal bowel sounds. Negative: distention, tenderness Genitourinary (Female): Positive: normal external genitalia Vulva: both: normal Vagina: Positive: normal moisture. Negative: discharge Cervix: Negative: lesion, discharge Uterus: Positive: normal size, normal contour Adnexa: both: normal Anus/Rectum: Positive: normal perianal skin, heme negative. Negative: rectal mass, hemorrhoids Extremities: Positive: normal Deep Tendon Reflex Grade: Normal +2 - Obstetrical FHR: category 1 Uterine Contraction Monitor Mode: External Uterine Contraction Pattern: Absent Uterine Tone Measurement Phase: Resting Results Result Diagrams: 11/04/19 16:44 11/04/19 16:54 Abnormal lab results 11/04/19 11/04/19 Range/Units 16:44 16:54 RBC 3.29 L (3.65-5.03) M/mm3 Plt Count 100 L (140-440) K/mm3 Seg Neutrophils % 74.0 H (40.0-70.0) % Creatinine 0.4 L (0.7-1.2) mg/dL ALT < 5 L (7-56) units/L Lactate Dehydrogenase 230 H (91-180) units/L All other labs normal. GBS POSITIVE HBsAg Screen Negative Negative *1 RPR Non Reactive Non Reactive *2 Rubella Antibodies, IgG 1.26 index Immune >0.99 *3 Non-immune <0.90 Equivocal 0.90 - 0.99 Immune >0.99 ABO Grouping AB *4 Rh Factor Positive *5 Please note: Prior records for this patient's ABO / Rh type are not available for additional verification. Antibody Screen Negative Negative *6 WBC 7.8 x10E3/uL 3.4-10.8 *7 RBC [L] 3.26 x10E6/uL 3.77-5.28 *8 Hemoglobin [L] 10.3 g/dL 11.1-15.9 *9 Hematocrit [L] 31.7 % 34.0-46.6 *10 MCV 97 fL 79-97 *11 MCH 31.6 pg 26.6-33.0 *12 MCHC 32.5 g/dL 31.5-35.7 *13 RDW 13.6 % 11.7-15.4 *14 Platelets [L] 131 x10E3/uL 150-450 *15 Neutrophils 79 % Not Estab. *16 Lymphs 16 % Not Estab. *17 Monocytes 4 % Not Estab. *18 Eos 1 % Not Estab. *19 Basos 0 % Not Estab. *20 ! Immature Cells <No Reported Value> *21 Neutrophils (Absolute) 6.2 x10E3/uL 1.4-7.0 *22 Lymphs (Absolute) 1.3 x10E3/uL 0.7-3.1 *23 Monocytes(Absolute) 0.3 x10E3/uL 0.1-0.9 *24 Eos (Absolute) 0.0 x10E3/uL 0.0-0.4 *25 Baso (Absolute) 0.0 x10E3/uL 0.0-0.2 *26 ! Immature Granulocytes 0 % Not Estab. *27 ! Immature Grans (Abs) 0.0 x10E3/uL 0.0-0.1 *28 ! NRBC <No Reported Value> *29 Hematology Comments: <No Reported Value> *30 Tests: (2) HB Solu + Rflx [facility] ([id number]) Hemoglobin (Hgb) Solubility Negative Negative *31 Tests: (3) HIV Ag/Ab with Reflex ([id number]) HIV Screen 4th Generation wRfx Non Reactive Non Reactive *32 Tests: (4) HCV Ab w/Rflx to Verification ([id number]) ! HCV Ab <0.1 s/co ratio 0.0-0.9 *33 Tests: (5) Comment: ([id number]) ! Comment: SPRCS *34 Non reactive HCV antibody screen is consistent with no HCV infection, unless recent infection is suspected or other evidence exists to indicate HCV infection. Tests: (6) Urine Culture, Routine ([id number]) Urine Culture, Routine Final report *35 Tests: (7) Result ([id number]) ! 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 Pt has not recovered completely from her seizure in Triage. IV Keppra ordered and Atavan .5mg Dr Harris will put in the remainder of orders. One on One nurse care (3) Headache Onset Date: ~11/04/19 Current Visit: Yes Status: Acute Qualifiers: Headache type: unspecified Headache chronicity pattern: unspecified pattern Intractability: intractable Qualified Code(s): R51 - Headache Plan to address problem: No evidence of PreE BP wnl PIH labs wnl (4) Seizure Current Visit: Yes Status: Acute
[2019-11-04] MEDS ORDERED: ePHEDrine SULFATE 50 MG/1 ML INJ ONE (19:39)
--- NOTE | 2019-11-04 19:50 | Ultrasound Report ---
ULTRASOUND OBSTETRIC INDICATION / CLINICAL INFORMATION: WELL BEING. Clinical Gestational Age (GA): 41 weeks 2 days TECHNIQUE: Transabdominal. COMPARISON: No relevant comparisons available. FINDINGS: There is a single intrauterine . Heart rate 128 bpm. ALONSO 10.7 cm. BREATHING MOVEMENT = 2 GROSS BODY MOVEMENT = 2 TONE = 2 QUALITATIVE AMNIOTIC FLUID VOLUME = 2 TOTAL BIOPHYSICAL SCORE = 8/8 Signer Name: Rolando Rodriguez MD Signed: 11/04/2019 7:45 PM Workstation Name: [id number]
[2019-11-04] MEDS ORDERED: ONDANSETRON 4 MG/2 ML INJ IV PRN (19:54)
[2019-11-04] MEDS ORDERED: diazePAM 10 MG/2 ML SYRINGE IV ONE (20:11)
[2019-11-04] MEDS ORDERED: LORazepam 2 MG/ML VIAL IV ONE (20:12)
--- NOTE | 2019-11-04 20:41 | Consultation ---
History of Present Illness - Reason for Consult Consult date: 11/04/19 Active Seizures Requesting physician: KRALA MENDENHALL Past History Social history: single Medications and Allergies Allergies Allergy/AdvReac Type Severity Reaction Status Date / Time egg Allergy Hives Verified 11/22/16 01:56 milk Allergy Rash Verified 11/22/16 01:56 acetaminophen AdvReac Shortness Verified 11/22/16 01:56 [From Tylenol-Codeine] of Breath codeine phosphate AdvReac Shortness Verified 11/22/16 01:58 [From Tylenol-Codeine] of Breath Home Medications Medication Instructions Recorded Confirmed Last Taken Type Ferrous Sulfate [Feosol 325 MG tab] 325 mg PO BID #60 tablet 04/18/15 01/22/17 10/03/19 22:00 Rx 1 Folic Acid [Folvite] 1 mg PO QDAY #30 tablet 11/23/16 01/22/17 10/04/19 09:00 Rx 1 ALPRAZolam [Xanax TAB] 2 mg PO TID PRN 12/05/16 01/22/17 10/03/19 22:00 History FLUoxetine [PROzac] 40 mg PO QDAY 12/05/16 01/22/17 10/03/19 22:00 History 1 levETIRAcetam [Keppra TAB] 1,500 mg PO BID 01/22/17 01/22/17 10/04/19 19:00 History 1500 Active Meds: Active Medications Lactated Ringer's (Lactated Ringers) 1,000 mls @ 125 mls/hr IV DIRECT NICK Last Admin: 11/04/19 17:35 Dose: 1,200 mls/hr Documented by: Levetiracetam 1,500 mg/ (Dextrose) 115 mls @ 400 mls/hr IV Q12HR NICK Levetiracetam 1,000 mg/ (Dextrose) 110 mls @ 400 mls/hr IV Q12HR NICK Levetiracetam (Keppra) 1,500 mg PO BID NICK Lorazepam (Ativan) 2 mg IV Q1H PRN PRN Reason: Agitation Multivitamins/Iron/Calcium ( Vitamin) 1 each PO QDAY NICK Ondansetron HCl (Zofran) 4 mg IV Q6H PRN PRN Reason: Nausea And Vomiting Exam - Constitutional Vitals: Temp Pulse Resp BP Pulse Ox 97.7 F 87 18 99/54 100 11/04/19 19:12 11/04/19 20:32 11/04/19 19:12 11/04/19 20:22 11/04/19 20:32 Results - Labs CBC & Chem 7: 11/04/19 16:44 11/04/19 16:54 Labs: Abnormal lab results 11/04/19 11/04/19 Range/Units 16:44 16:54 RBC 3.29 L (3.65-5.03) M/mm3 Plt Count 100 L (140-440) K/mm3 Seg Neutrophils % 74.0 H (40.0-70.0) % Creatinine 0.4 L (0.7-1.2) mg/dL ALT < 5 L (7-56) units/L Lactate Dehydrogenase 230 H (91-180) units/L
[2019-11-04] MEDS ORDERED: diazePAM 10 MG/2 ML SYRINGE IV PRN (20:57)
--- NOTE | 2019-11-04 20:58 | Event Note ---
Date: 11/04/19 Pt at 36.6 weeks with seizure d/o presents with recurrent sz this week as well as 2 witnessed since admission. Hospitalist consulted as there is no neuro available. I d/w pt and s/o the plan of care at this time is to stabalize the seizures and await recommendations from MFM regarding delivery. Pt has not been compliant and has not seen primary Ob (this office) or mfm for the duration of the . She has been given Keppra IV as well as IV ativan prn seizures. At this time Dr. Powell, M supervisor component assembler for [facility] is being consulted for guidance in timing of delivery. She dose not show any s/sx of pre E as labs and blood pressures are stable and having some episodes of hypotension with the ativan that is given. Pt is post ictal at time of my bedside visit but s/o expresse understanding of plan of care. Pt also has reported lupus and MS for which again she has not seen any providers.
[2019-11-04] MEDS ORDERED: AMPICILLIN/NS 2 GM/100 ML 2 GM/100 ML BAG IV ONE ×2 (21:07→21:12)
--- NOTE | 2019-11-04 21:11 | Event Note ---
Date: 11/04/19 (Spoke with Dr Powell [facility]) Gave pt hx to Dr Powell Based on GA and seizure activity she recommends to start IOL after midnight. Dr Perez made aware.
[2019-11-04] MEDS ORDERED: ACETAMINOPHEN 325 MG TAB PO ONE (21:36)
[2019-11-04] MEDS ORDERED: levETIRAcetam 1,500 MG in DEXTROSE 5% IN WATER 100 ML IV SCH (22:00)
[2019-11-04] MEDS ORDERED: levETIRAcetam 500 MG TAB PO SCH (22:00)
[2019-11-05] MEDS ORDERED: LIDOCAINE (2%) 20 MG/1 ML VIAL 20 ML MDV INFILTRATI ONE (00:09)
[2019-11-05] MEDS ORDERED: fentaNYL 100 MCG/2 ML INJ IV PRN (00:09)
[2019-11-05] MEDS ORDERED: MINERAL OIL 30 ML ORAL LIQD PO PRN (00:09)
[2019-11-05] MEDS ORDERED: TERBUTALINE 1 MG/1 ML INJ SUB-Q PRN (00:09)
[2019-11-05] MEDS ORDERED: ePHEDrine SULFATE 50 MG/1 ML INJ IV PRN ×2 (00:09→01:28)
--- NOTE | 2019-11-05 00:16 | Progress Note ---
Assessment and Plan Pt now 37w0d as per [facility] recommendations will begin IOL SVE 3-4,70,-2 Internals placed. Pitocin started @ 4mu. Bolus for epidural. Pt receiving Ampicillin per protocol, 2nd dose @ 0100. Re-eval as needed. 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 Births: 0 Prev : 0 Prev. attempt? 0 Aborta: 1 Elect. Ab: 0 Spont. Ab: 1 # 1 Delivery date: 2005 Weeks Gestation: term labor: no Delivery type: Delivery location: [facility] Infant Sex: Male weight: 6#7oz Comments: complicated by drug use (pain meds & Anxiety meds) # 2 Delivery date: 2009 Weeks Gestation: term labor: no Delivery type: Delivery location: [facility] Sex: Female weight: 7#13 Comments: complicated by drug use (pain meds & Anxiety meds) # 3 Delivery date: 2015 Weeks Gestation: term labor: no Delivery type: Delivery location: [facility] Infant Sex: Female weight: 6#9 Comments: complicated by drug use (pain meds & Anxiety meds) # 4 Delivery date: 2017 Weeks Gestation: term labor: no Delivery type: Delivery location: [facility] Infant Sex: Male weight: 6# Comments: complicated by drug use (pain meds & Anxiety meds) Past Medical History: [facility]ed from [facility] 07/2019 Seizure dx; on keppra, seizures brought on by anxiety - managed by PCP Dr. Horne MS - managed by pain management Dr. Rodriguez Lupus - managed by PCP Dr. 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 of genital herpes: yes Partner hx. of genital herpes: no Rash, Viral, or Febrile illness since last LMP? no Varicella/Chicken Pox Status: Previous Disease TB Risk: no Genetic History Congenital Heart Defect: Mom: no Dad: no Lana Disease: Mom: no Dad: no Thalassemia Mom: no Dad: no Neural Tube Defect Mom: no Dad: no Down's Syndrome Mom: no Dad: no Al-Sachs Mom: no Dad: no Sickle Cell Disease/Trait Mom: no Dad: no Hemophilia Mom: no Dad: no Muscular Dystrophy Mom: no Dad: no Cystic Fibrosis Mom: no Dad: no Palmer Chorea Mom: no Dad: no Mental Retardation Mom: no Dad: no Fragile X Mom: no Dad: no Other Genetic/Chromosomal Disorder Mom: no Dad: no Child w/other defect Mom: no Dad: no Enviromental Exposures Xray Exposure: no Medication, drug, or alcohol use since LMP: no Chemical/Other Exposure: yes Exposure to Cat Liter: no Occupational Exposure to Children: none Comments: percocet, keppra Current Allergies (reviewed today): milk,eggs,acetaminophen, codeine Patient reports: movement normal Objective - Vital Signs Vital Signs: Vital Signs - 12hr 11/04/19 11/04/19 11/04/19 16:00 16:04 19:11 Temperature 97.6 F Pulse Rate 90 90 61 Respiratory 18 Rate Blood Pressure 111/55 Blood Pressure 111/55 [Left] O2 Sat by Pulse 99 Oximetry 11/04/19 11/04/19 11/04/19 19:12 19:16 19:17 Temperature 97.7 F Pulse Rate 66 151 H 74 Respiratory 18 Rate Blood Pressure 147/70 135/76 Blood Pressure 147/70 [Left] O2 Sat by Pulse 98 84 84 Oximetry 11/04/19 11/04/19 11/04/19 19:27 19:28 19:32 Temperature Pulse Rate 80 102 H 68 Respiratory Rate Blood Pressure 113/54 Blood Pressure [Left] O2 Sat by Pulse 100 99 Oximetry 11/04/19 11/04/19 11/04/19 19:33 19:34 19:36 Temperature Pulse Rate 65 71 68 Respiratory Rate Blood Pressure 79/38 81/38 78/42 Blood Pressure [Left] O2 Sat by Pulse Oximetry 11/04/19 11/04/19 11/04/19 19:37 19:42 19:43 Temperature Pulse Rate 79 64 66 Respiratory Rate Blood Pressure 83/40 110/54 Blood Pressure [Left] O2 Sat by Pulse 99 100 Oximetry 11/04/19 11/04/19 11/04/19 19:47 19:52 19:57 Temperature Pulse Rate 88 81 75 Respiratory Rate Blood Pressure 101/55 99/51 Blood Pressure [Left] O2 Sat by Pulse 100 100 100 Oximetry 11/04/19 11/04/19 11/04/19 19:58 20:02 20:03 Temperature Pulse Rate 73 78 214 H Respiratory Rate Blood Pressure 105/54 116/67 Blood Pressure [Left] O2 Sat by Pulse 100 Oximetry 11/04/19 11/04/19 11/04/19 20:07 20:08 20:12 Temperature Pulse Rate 70 66 99 H Respiratory Rate Blood Pressure 105/49 103/51 Blood Pressure [Left] O2 Sat by Pulse 100 100 Oximetry 11/04/19 11/04/19 11/04/19 20:17 20:22 20:27 Temperature Pulse Rate 87 75 93 H Respiratory Rate Blood Pressure 106/53 99/54 Blood Pressure [Left] O2 Sat by Pulse 100 100 100 Oximetry 11/04/19 11/04/19 11/04/19 20:32 20:37 20:42 Temperature Pulse Rate 87 88 95 H Respiratory Rate Blood Pressure 106/56 Blood Pressure [Left] O2 Sat by Pulse 100 100 100 Oximetry 11/04/19 11/04/19 11/04/19 20:47 20:52 20:57 Temperature Pulse Rate 82 82 84 Respiratory Rate Blood Pressure 102/54 Blood Pressure [Left] O2 Sat by Pulse 100 100 100 Oximetry 11/04/19 11/04/19 11/04/19 21:02 21:07 21:12 Temperature Pulse Rate 78 74 87 Respiratory Rate Blood Pressure 103/53 Blood Pressure [Left] O2 Sat by Pulse 100 100 100 Oximetry 11/04/19 11/04/19 11/04/19 21:17 21:22 21:27 Temperature Pulse Rate 80 96 H 75 Respiratory Rate Blood Pressure 105/56 Blood Pressure [Left] O2 Sat by Pulse 100 100 100 Oximetry 11/04/19 11/04/19 11/04/19 21:32 21:37 21:38 Temperature Pulse Rate 77 82 84 Respiratory Rate Blood Pressure 110/58 Blood Pressure [Left] O2 Sat by Pulse 100 100 Oximetry 11/04/19 11/04/19 11/04/19 21:42 21:47 21:52 Temperature Pulse Rate 89 89 84 Respiratory Rate Blood Pressure 105/59 Blood Pressure [Left] O2 Sat by Pulse 100 100 100 Oximetry 11/04/19 11/04/19 11/04/19 21:57 22:02 22:07 Temperature Pulse Rate 84 92 H 83 Respiratory Rate Blood Pressure 96/52 Blood Pressure [Left] O2 Sat by Pulse 100 100 100 Oximetry 11/04/19 11/04/19 11/04/19 22:12 22:17 22:22 Temperature Pulse Rate 86 79 91 H Respiratory Rate Blood Pressure Blood Pressure [Left] O2 Sat by Pulse 100 100 100 Oximetry 11/04/19 11/04/19 11/04/19 22:23 22:27 22:32 Temperature Pulse Rate 85 65 79 Respiratory Rate Blood Pressure 102/51 Blood Pressure [Left] O2 Sat by Pulse 100 100 Oximetry 11/04/19 11/04/19 11/04/19 22:37 22:42 22:47 Temperature Pulse Rate 75 75 71 Respiratory Rate Blood Pressure 96/52 Blood Pressure [Left] O2 Sat by Pulse 100 100 100 Oximetry 11/04/19 11/04/19 11/04/19 22:52 22:53 22:57 Temperature Pulse Rate 84 85 77 Respiratory Rate Blood Pressure 96/46 Blood Pressure [Left] O2 Sat by Pulse 100 100 Oximetry 11/04/19 11/04/19 11/04/19 23:02 23:07 23:12 Temperature Pulse Rate 71 73 71 Respiratory Rate Blood Pressure 90/46 Blood Pressure [Left] O2 Sat by Pulse 100 100 100 Oximetry 11/04/19 11/04/19 11/04/19 23:17 23:22 23:27 Temperature Pulse Rate 68 68 75 Respiratory Rate Blood Pressure 93/50 Blood Pressure [Left] O2 Sat by Pulse 100 100 100 Oximetry 11/04/19 11/04/19 11/04/19 23:32 23:37 23:42 Temperature Pulse Rate 72 78 68 Respiratory Rate Blood Pressure 84/47 Blood Pressure [Left] O2 Sat by Pulse 100 100 100 Oximetry 11/04/19 11/04/19 11/04/19 23:44 23:47 23:52 Temperature Pulse Rate 72 84 67 Respiratory Rate Blood Pressure 87/49 87/50 Blood Pressure [Left] O2 Sat by Pulse 100 100 Oximetry 11/04/19 11/05/19 11/05/19 23:57 00:02 00:07 Temperature Pulse Rate 69 83 72 Respiratory Rate Blood Pressure Blood Pressure [Left] O2 Sat by Pulse 100 100 100 Oximetry 11/05/19 00:08 Temperature Pulse Rate 71 Respiratory Rate Blood Pressure 99/53 Blood Pressure [Left] O2 Sat by Pulse Oximetry - Exam Breasts: deferred Cardiovascular: Regular rate Lungs: Normal air movement Abdomen: Present: normal appearance, soft, normal bowel sounds. Absent: distention, tenderness Uterus: Present: normal FHR: auscultation normal, category 1 Uterine Contraction Monitor Mode: Internal Cervical Dilatation: 3.5 (clear fluid) Cervical Effacement Percentage: 70 (Internals placed) station: -2 Uterine Contraction Pattern: Irregular Uterine Tone Measurement Phase: Resting Uterine Contraction Intensity: Mild Extremities: normal Deep Tendon Reflex Grade: Normal +2 - Labs Labs: Abnormal Labs 11/04/19 11/04/19 16:44 16:54 RBC 3.29 L Plt Count 100 L Seg Neutrophils % 74.0 H Creatinine 0.4 L ALT < 5 L Lactate Dehydrogenase 230 H Laboratory Results - last 24 hr 11/04/19 11/04/19 11/04/19 16:44 16:54 18:30 WBC 7.0 RBC 3.29 L Hgb 10.6 Hct 31.7 MCV 97 MCH 32 MCHC 34 RDW 14.1 Plt Count 100 L Lymph % (Auto) 20.4 [place] % (Auto) 5.0 Eos % (Auto) 0.4 Baso % (Auto) 0.2 Lymph # 1.4 [place] # 0.3 Eos # 0.0 Baso # 0.0 Seg Neutrophils % 74.0 H Seg Neutrophils # 5.2 Creatinine 0.4 L Estimated GFR > 60 POC Glucose Uric Acid 5.0 AST 15 ALT < 5 L Lactate Dehydrogenase 230 H Urine Color Urine Turbidity Urine pH Ur Specific [place] Urine Protein Urine Glucose (UA) Urine Ketones Urine Blood Urine Nitrite Urine Bilirubin Urine Urobilinogen Ur Leukocyte Esterase Urine WBC (Auto) Urine RBC (Auto) U Epithel Cells (Auto) Urine Mucus Urine Opiates Screen Presumptive negative Urine Methadone Screen Presumptive negative Ur Barbiturates Screen Presumptive positive Ur Phencyclidine Scrn Presumptive negative Ur Amphetamines Screen Presumptive negative U Benzodiazepines Scrn Presumptive negative Urine Cocaine Screen Presumptive negative U Marijuana (THC) Screen Presumptive negative Drugs of Abuse Note Disclamer Blood Type Antibody Screen 11/04/19 11/04/19 11/04/19 18:30 20:11 20:30 WBC RBC Hgb Hct MCV MCH MCHC RDW Plt Count Lymph % (Auto) [place] % (Auto) Eos % (Auto) Baso % (Auto) Lymph # [place] # Eos # Baso # Seg Neutrophils % Seg Neutrophils # Creatinine Estimated GFR POC Glucose 77 Uric Acid AST ALT Lactate Dehydrogenase Urine Color Yellow Urine Turbidity Clear Urine pH 6.0 Ur Specific [place] 1.009 Urine Protein <15 mg/dl Urine Glucose (UA) Neg Urine Ketones Neg Urine Blood Neg Urine Nitrite Neg Urine Bilirubin Neg Urine Urobilinogen < 2.0 Ur Leukocyte Esterase Neg Urine WBC (Auto) < 1.0 Urine RBC (Auto) 1.0 U Epithel Cells (Auto) 2.0 Urine Mucus Few Urine Opiates Screen Urine Methadone Screen Ur Barbiturates Screen Ur Phencyclidine Scrn Ur Amphetamines Screen U Benzodiazepines Scrn Urine Cocaine Screen U Marijuana (THC) Screen Drugs of Abuse Note Blood Type AB POSITIVE Antibody Screen Negative
[2019-11-05] MEDS: OXYTOCIN DRIP 30 UNITS/500 ML BAG IV SCH ×7 (00:19→04:03)
[2019-11-05] MEDS ORDERED: OXYTOCIN DRIP 30 UNITS/500 ML BAG IV SCH (01:00)
[2019-11-05] MEDS ORDERED: OXYTOCIN 20 UNIT/1000ML DRIP 20 UNITS/1,000 ML BAG IV SCH ×3 (01:00→08:00)
[2019-11-05] MEDS ORDERED: DEXMEDETOMIDINE 200 MCG/2 ML VIAL IV ONE (01:02)
[2019-11-05] MEDS ORDERED: AMPICILLIN/NS 1 GM/50 ML 1 GM/50 ML BAG IV SCH (01:15)
[2019-11-05] MEDS ORDERED: fentaNYL-BUPIV 2 MCG/ML-0.125% 200 MCG/100 ML BAG EPIDURAL ONE (01:21)
[2019-11-05] MEDS ORDERED: NALOXONE 2 MG/2 ML INJ IV PRN (01:28)
--- NOTE | 2019-11-05 01:34 | Anesthesia Consultation ---
Anesthesia Consult and Med Hx Date of service: 11/05/19 - Airway Anesthetic Teeth Evaluation: Poor ROM Head & Neck: Adequate Mental/Hyoid Distance: Adequate Mallampati Class: Class III Intubation Access Assessment: Probably Good - Pulmonary Exam CTA: Yes - Cardiac Exam Cardiac Exam: RRR - Pre-Operative Health Status ASA Pre-Surgery Classification: ASA3 Proposed Anesthetic Plan: Epidural - Pulmonary Hx Smoking: No Hx Asthma: Yes (LAST ATTACK IN JUNE 2019) Hx Respiratory Symptoms: No SOB: No COPD: No Home Oxygen Therapy: No Hx Pneumonia: No Hx Sleep Apnea: No - Cardiovascular System Hx Hypertension: No Hx Coronary Artery Disease: No Hx Heart Attack/AMI: No Hx Angina: No Hx Percutaneous Transluminal Coronary Angioplasty (PTCA): No Hx Cardia Arrhythmia: No Hx Pacemaker: No Hx Internal Defibrillator: No Hx Valvular Heart Disease: No Hx Heart Murmur: No Hx Peripheral Vascular Disease: No - Central Nervous System Hx Neuromuscular Disorder: No Hx Seizures: Yes (charo , had seizure today) CVA: No Hx Back Pain: No Hx Psychiatric Problems: Yes (anxiety, ALPRAOLAM) - Gastrointestinal Hx Ulcer: No Hx Gastroesophageal Reflux Disease: Yes - Endocrine Hx Renal Disease: No Hx End Stage Renal Disease: No Hx Cirrhosis: No Hx Liver Disease: No Hx Insulin Dependent Diabetes: No Hx Non-Insulin Dependent Diabetes: No Hx Thyroid Disease: No Hx Hypothyroidism: No Hx Hyperthyroidism: No - Hematic Hx Anemia: No Hx Sickle Cell Disease: No - Other Systems Hx Alcohol Use: No Hx Substance Use: No Hx Cancer: No Hx Obesity: Yes
--- NOTE | 2019-11-05 01:35 | Progress Note ---
Labor Epidural - Labor Epidural Start Time: 01:06 Stop Time: 01:12 Performed by:: SAIDA DAS Procedure: Patient is requesting a laboring epidural for laboring pain. Patient IDed, H&P reviewed, all questions and concerns were answered, and consent was signed. Timeout was performed at bedside. Patient in sitting position. Sterile prep and drape was performed. [3] ml of 1% lidocaine skin wheal at L[3]- L [4]. 18- gauge Touhy epidural needle was advanced to loss of resistance with air technique 8cm. Negative CSF negative blood. Epidural catheter advanced to [negative] centimeters. [negative] Aspiration [negative] test dose. Sterile dressing applied. Patient tolerated procedure.
[2019-11-05] MEDS ORDERED: fentaNYL-BUPIV 2 MCG/ML-0.125% 200 MCG/100 ML BAG EPIDURAL SCH (02:00)
--- NOTE | 2019-11-05 02:35 | Progress Note ---
Assessment and Plan No further seizure activity. Pit @ 16mu Slow chg Ctx increasing. 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 Births: 0 Prev : 0 Prev. attempt? 0 Aborta: 1 Elect. Ab: 0 Spont. Ab: 1 # 1 Delivery date: 2005 Weeks Gestation: term labor: no Delivery type: Delivery location: [facility] Sex: Male weight: 6#7oz Comments: complicated by drug use (pain meds & Anxiety meds) # 2 Delivery date: 2009 Weeks Gestation: term labor: no Delivery type: Delivery location: [facility] Infant Sex: Female weight: 7#13 Comments: complicated by drug use (pain meds & Anxiety meds) # 3 Delivery date: 2015 Weeks Gestation: term labor: no Delivery type: Delivery location: [facility] Sex: Female weight: 6#9 Comments: complicated by drug use (pain meds & Anxiety meds) # 4 Delivery date: 2017 Weeks Gestation: term labor: no Delivery type: Delivery location: [facility] Sex: Male weight: 6# Comments: complicated by drug use (pain meds & Anxiety meds) Past Medical History: Dismissed from [facility] 07/2019 Seizure dx; on keppra, seizures brought on by anxiety - managed by PCP Dr. Horne MS - managed by pain management Dr. Legget Lupus - managed by PCP Dr. Ozzie Armijo - [facility] in [facility] Past Surgical History: Cholecystectomy (2009) Appendectomy (1995) Past Medical History Surgery (Non-dope mixer): Cholecystectomy (2009) Appendectomy (1995) Abnormal PAP: negative Infection History Hx of STD: HSV HIV Risk Eval: low risk Hepatitis B Risk Eval: low risk Personal hx. of genital herpes: yes Partner hx. of genital herpes: no Rash, Viral, or Febrile illness since last LMP? no Varicella/Chicken Pox Status: Previous Disease TB Risk: no Genetic History Congenital Heart Defect: Mom: no Dad: no Lana Disease: Mom: no Dad: no Thalassemia Mom: no Dad: no Neural Tube Defect Mom: no Dad: no Down's Syndrome Mom: no Dad: no Al-Sachs Mom: no Dad: no Sickle Cell Disease/Trait Mom: no Dad: no Hemophilia Mom: no Dad: no Muscular Dystrophy Mom: no Dad: no Cystic Fibrosis Mom: no Dad: no Loc Chorea Mom: no Dad: no Mental Retardation Mom: no Dad: no Fragile X Mom: no Dad: no Other Genetic/Chromosomal Disorder Mom: no Dad: no Child w/other defect Mom: no Dad: no Enviromental Exposures Xray Exposure: no Medication, drug, or alcohol use since LMP: no Chemical/Other Exposure: yes Exposure to Cat Liter: no Occupational Exposure to Children: none Comments: charo daniel Current Allergies (reviewed today): milk,eggs,acetaminophen, codeine Patient reports: movement normal, other (pt c/o pressure; back pain) Objective - Vital Signs Vital Signs: Vital Signs - 12hr 11/04/19 11/04/19 11/04/19 16:00 16:04 19:11 Temperature 97.6 F Pulse Rate 90 90 61 Respiratory 18 Rate Blood Pressure 111/55 Blood Pressure 111/55 [Left] O2 Sat by Pulse 99 Oximetry 11/04/19 11/04/19 11/04/19 19:12 19:16 19:17 Temperature 97.7 F Pulse Rate 66 151 H 74 Respiratory 18 Rate Blood Pressure 147/70 135/76 Blood Pressure 147/70 [Left] O2 Sat by Pulse 98 84 84 Oximetry 11/04/19 11/04/19 11/04/19 19:27 19:28 19:32 Temperature Pulse Rate 80 102 H 68 Respiratory Rate Blood Pressure 113/54 Blood Pressure [Left] O2 Sat by Pulse 100 99 Oximetry 11/04/19 11/04/19 11/04/19 19:33 19:34 19:36 Temperature Pulse Rate 65 71 68 Respiratory Rate Blood Pressure 79/38 81/38 78/42 Blood Pressure [Left] O2 Sat by Pulse Oximetry 11/04/19 11/04/19 11/04/19 19:37 19:42 19:43 Temperature Pulse Rate 79 64 66 Respiratory Rate Blood Pressure 83/40 110/54 Blood Pressure [Left] O2 Sat by Pulse 99 100 Oximetry 11/04/19 11/04/19 11/04/19 19:47 19:52 19:57 Temperature Pulse Rate 88 81 75 Respiratory Rate Blood Pressure 101/55 99/51 Blood Pressure [Left] O2 Sat by Pulse 100 100 100 Oximetry 11/04/19 11/04/19 11/04/19 19:58 20:02 20:03 Temperature Pulse Rate 73 78 214 H Respiratory Rate Blood Pressure 105/54 116/67 Blood Pressure [Left] O2 Sat by Pulse 100 Oximetry 11/04/19 11/04/19 11/04/19 20:07 20:08 20:12 Temperature Pulse Rate 70 66 99 H Respiratory Rate Blood Pressure 105/49 103/51 Blood Pressure [Left] O2 Sat by Pulse 100 100 Oximetry 11/04/19 11/04/19 11/04/19 20:17 20:22 20:27 Temperature Pulse Rate 87 75 93 H Respiratory Rate Blood Pressure 106/53 99/54 Blood Pressure [Left] O2 Sat by Pulse 100 100 100 Oximetry 11/04/19 11/04/19 11/04/19 20:32 20:37 20:42 Temperature Pulse Rate 87 88 95 H Respiratory Rate Blood Pressure 106/56 Blood Pressure [Left] O2 Sat by Pulse 100 100 100 Oximetry 11/04/19 11/04/19 11/04/19 20:47 20:52 20:57 Temperature Pulse Rate 82 82 84 Respiratory Rate Blood Pressure 102/54 Blood Pressure [Left] O2 Sat by Pulse 100 100 100 Oximetry 11/04/19 11/04/19 11/04/19 21:02 21:07 21:12 Temperature Pulse Rate 78 74 87 Respiratory Rate Blood Pressure 103/53 Blood Pressure [Left] O2 Sat by Pulse 100 100 100 Oximetry 11/04/19 11/04/19 11/04/19 21:17 21:22 21:27 Temperature Pulse Rate 80 96 H 75 Respiratory Rate Blood Pressure 105/56 Blood Pressure [Left] O2 Sat by Pulse 100 100 100 Oximetry 11/04/19 11/04/19 11/04/19 21:32 21:37 21:38 Temperature Pulse Rate 77 82 84 Respiratory Rate Blood Pressure 110/58 Blood Pressure [Left] O2 Sat by Pulse 100 100 Oximetry 11/04/19 11/04/19 11/04/19 21:42 21:47 21:52 Temperature Pulse Rate 89 89 84 Respiratory Rate Blood Pressure 105/59 Blood Pressure [Left] O2 Sat by Pulse 100 100 100 Oximetry 11/04/19 11/04/19 11/04/19 21:57 22:02 22:07 Temperature Pulse Rate 84 92 H 83 Respiratory Rate Blood Pressure 96/52 Blood Pressure [Left] O2 Sat by Pulse 100 100 100 Oximetry 11/04/19 11/04/19 11/04/19 22:12 22:17 22:22 Temperature Pulse Rate 86 79 91 H Respiratory Rate Blood Pressure Blood Pressure [Left] O2 Sat by Pulse 100 100 100 Oximetry 11/04/19 11/04/19 11/04/19 22:23 22:27 22:32 Temperature Pulse Rate 85 65 79 Respiratory Rate Blood Pressure 102/51 Blood Pressure [Left] O2 Sat by Pulse 100 100 Oximetry 11/04/19 11/04/19 11/04/19 22:37 22:42 22:47 Temperature Pulse Rate 75 75 71 Respiratory Rate Blood Pressure 96/52 Blood Pressure [Left] O2 Sat by Pulse 100 100 100 Oximetry 11/04/19 11/04/19 11/04/19 22:52 22:53 22:57 Temperature Pulse Rate 84 85 77 Respiratory Rate Blood Pressure 96/46 Blood Pressure [Left] O2 Sat by Pulse 100 100 Oximetry 11/04/19 11/04/19 11/04/19 23:02 23:07 23:12 Temperature Pulse Rate 71 73 71 Respiratory Rate Blood Pressure 90/46 Blood Pressure [Left] O2 Sat by Pulse 100 100 100 Oximetry 11/04/19 11/04/19 11/04/19 23:17 23:22 23:27 Temperature Pulse Rate 68 68 75 Respiratory Rate Blood Pressure 93/50 Blood Pressure [Left] O2 Sat by Pulse 100 100 100 Oximetry 11/04/19 11/04/19 11/04/19 23:32 23:37 23:42 Temperature Pulse Rate 72 78 68 Respiratory Rate Blood Pressure 84/47 Blood Pressure [Left] O2 Sat by Pulse 100 100 100 Oximetry 11/04/19 11/04/19 11/04/19 23:44 23:47 23:52 Temperature Pulse Rate 72 84 67 Respiratory Rate Blood Pressure 87/49 87/50 Blood Pressure [Left] O2 Sat by Pulse 100 100 Oximetry 11/04/19 11/05/19 11/05/19 23:57 00:02 00:07 Temperature Pulse Rate 69 83 72 Respiratory Rate Blood Pressure Blood Pressure [Left] O2 Sat by Pulse 100 100 100 Oximetry 11/05/19 11/05/19 11/05/19 00:08 00:12 00:17 Temperature Pulse Rate 71 87 82 Respiratory Rate Blood Pressure 99/53 Blood Pressure [Left] O2 Sat by Pulse 100 100 Oximetry 11/05/19 11/05/19 11/05/19 00:22 00:27 00:32 Temperature Pulse Rate 82 84 84 Respiratory Rate Blood Pressure Blood Pressure [Left] O2 Sat by Pulse 100 100 100 Oximetry 11/05/19 11/05/19 11/05/19 00:37 00:38 00:42 Temperature Pulse Rate 78 69 67 Respiratory Rate Blood Pressure 88/41 Blood Pressure [Left] O2 Sat by Pulse 100 100 Oximetry 11/05/19 11/05/19 11/05/19 00:47 00:52 00:57 Temperature Pulse Rate 65 80 71 Respiratory Rate Blood Pressure Blood Pressure [Left] O2 Sat by Pulse 100 100 100 Oximetry 11/05/19 11/05/19 11/05/19 01:02 01:07 01:08 Temperature Pulse Rate 75 83 86 Respiratory Rate Blood Pressure 118/70 124/68 Blood Pressure [Left] O2 Sat by Pulse 99 100 Oximetry 11/05/19 11/05/19 11/05/19 01:10 01:12 01:14 Temperature Pulse Rate 77 87 78 Respiratory Rate Blood Pressure 117/62 115/61 115/59 Blood Pressure [Left] O2 Sat by Pulse 100 Oximetry 11/05/19 11/05/19 11/05/19 01:17 01:19 01:21 Temperature Pulse Rate 77 79 81 Respiratory Rate Blood Pressure 148/65 110/53 97/51 Blood Pressure [Left] O2 Sat by Pulse 100 Oximetry 11/05/19 11/05/19 11/05/19 01:22 01:27 01:32 Temperature Pulse Rate 73 76 73 Respiratory Rate Blood Pressure Blood Pressure [Left] O2 Sat by Pulse 100 100 100 Oximetry 11/05/19 11/05/19 11/05/19 01:37 01:42 01:47 Temperature Pulse Rate 75 92 H 68 Respiratory Rate Blood Pressure Blood Pressure [Left] O2 Sat by Pulse 100 100 99 Oximetry 11/05/19 11/05/19 11/05/19 01:51 01:52 01:57 Temperature Pulse Rate 65 69 72 Respiratory Rate Blood Pressure 101/54 Blood Pressure [Left] O2 Sat by Pulse 99 99 Oximetry 11/05/19 11/05/19 11/05/19 02:02 02:07 02:12 Temperature Pulse Rate 70 71 70 Respiratory Rate Blood Pressure Blood Pressure [Left] O2 Sat by Pulse 98 98 98 Oximetry 11/05/19 11/05/19 11/05/19 02:17 02:21 02:22 Temperature Pulse Rate 71 76 90 Respiratory Rate Blood Pressure 103/50 Blood Pressure [Left] O2 Sat by Pulse 98 99 Oximetry 11/05/19 02:27 Temperature Pulse Rate 73 Respiratory Rate Blood Pressure Blood Pressure [Left] O2 Sat by Pulse 99 Oximetry - Exam Breasts: deferred Cardiovascular: Regular rate Lungs: Normal air movement Abdomen: Present: normal appearance, soft. Absent: distention, tenderness Uterus: Present: normal FHR: auscultation normal, category 1 (minimal variability) Uterine Contraction Monitor Mode: Internal Cervical Dilatation: 4 Cervical Effacement Percentage: 70 station: -2 Uterine Contraction Pattern: Irregular Uterine Tone Measurement Phase: Resting Uterine Contraction Intensity: Mild Extremities: edema Deep Tendon Reflex Grade: Normal +2 - Labs Labs: Abnormal Labs 11/04/19 11/04/19 16:44 16:54 RBC 3.29 L Plt Count 100 L Seg Neutrophils % 74.0 H Creatinine 0.4 L ALT < 5 L Lactate Dehydrogenase 230 H Laboratory Results - last 24 hr 11/04/19 11/04/19 11/04/19 16:44 16:54 18:30 WBC 7.0 RBC 3.29 L Hgb 10.6 Hct 31.7 MCV 97 MCH 32 MCHC 34 RDW 14.1 Plt Count 100 L Lymph % (Auto) 20.4 [place] % (Auto) 5.0 Eos % (Auto) 0.4 Baso % (Auto) 0.2 Lymph # 1.4 [place] # 0.3 Eos # 0.0 Baso # 0.0 Seg Neutrophils % 74.0 H Seg Neutrophils # 5.2 Creatinine 0.4 L Estimated GFR > 60 POC Glucose Uric Acid 5.0 AST 15 ALT < 5 L Lactate Dehydrogenase 230 H Urine Color Urine Turbidity Urine pH Ur Specific [place] Urine Protein Urine Glucose (UA) Urine Ketones Urine Blood Urine Nitrite Urine Bilirubin Urine Urobilinogen Ur Leukocyte Esterase Urine WBC (Auto) Urine RBC (Auto) U Epithel Cells (Auto) Urine Mucus Urine Opiates Screen Presumptive negative Urine Methadone Screen Presumptive negative Ur Barbiturates Screen Presumptive positive Ur Phencyclidine Scrn Presumptive negative Ur Amphetamines Screen Presumptive negative U Benzodiazepines Scrn Presumptive negative Urine Cocaine Screen Presumptive negative U Marijuana (THC) Screen Presumptive negative Drugs of Abuse Note Disclamer Blood Type Antibody Screen 11/04/19 11/04/19 11/04/19 18:30 20:11 20:30 WBC RBC Hgb Hct MCV MCH MCHC RDW Plt Count Lymph % (Auto) [place] % (Auto) Eos % (Auto) Baso % (Auto) Lymph # [place] # Eos # Baso # Seg Neutrophils % Seg Neutrophils # Creatinine Estimated GFR POC Glucose 77 Uric Acid AST ALT Lactate Dehydrogenase Urine Color Yellow Urine Turbidity Clear Urine pH 6.0 Ur Specific [place] 1.009 Urine Protein <15 mg/dl Urine Glucose (UA) Neg Urine Ketones Neg Urine Blood Neg Urine Nitrite Neg Urine Bilirubin Neg Urine Urobilinogen < 2.0 Ur Leukocyte Esterase Neg Urine WBC (Auto) < 1.0 Urine RBC (Auto) 1.0 U Epithel Cells (Auto) 2.0 Urine Mucus Few Urine Opiates Screen Urine Methadone Screen Ur Barbiturates Screen Ur Phencyclidine Scrn Ur Amphetamines Screen U Benzodiazepines Scrn Urine Cocaine Screen U Marijuana (THC) Screen Drugs of Abuse Note Blood Type AB POSITIVE Antibody Screen Negative
--- NOTE | 2019-11-05 04:02 | Event Note ---
Date: 11/05/19 (pt c/o back pain) unable to monitor ctx due to malfunction of IUPC Replaced with improved results. SVE no chg Pit @ 24mu Ctx appear to be 2-3 pt c/o back pain anesthesia notified. Re-eval as needed
[2019-11-05] MEDS ORDERED: METOCLOPRAMIDE 10 MG/2 ML INJ IV ONE (05:08)
[2019-11-05] MEDS ORDERED: BICITRA ORAL LIQD 30ML PO ONE (05:08)
[2019-11-05] MEDS ORDERED: FAMOTIDINE 20 MG/2 ML INJ IV ONE (05:08)
--- NOTE | 2019-11-05 05:27 | Event Note ---
Date: 11/05/19 Pt has failed to progressed at this time with no cervical casino change attendant several hours. Pt has thick meconium and periods of cat 2 tracing. I d/w waiting for labor to progress which it has not and it is at this time dysfunctional and recommend c/s. Pt and fob expressed understanding and agree with c/s. Consents signed and placed on the chart.
--- NOTE | 2019-11-05 05:28 | Anesthesia Day of Surgery ---
Anesthesia Day of Surgery - Day of Surgery Patient Examined: Yes Patient H&P Reviewed: Yes Patient is NPO: Yes Beta Blockers: No Cardiac Clearance: No Pulmonary Clearance: No Austyn's Test: N/A
[2019-11-05] MEDS ORDERED: ONDANSETRON 4 MG/2 ML INJ ONE (05:41)
[2019-11-05] MEDS ORDERED: LIDOCAINE 2%/EPINEPHRINE 1:200,000 VIAL (20 ML) INFILTRATI ONE ×3 (05:41→05:47)
[2019-11-05] MEDS ORDERED: SODIUM CHLORIDE 0.9% IRR 1,500 ML BOTTLE IR ONE (05:42)
[2019-11-05] MEDS ORDERED: WATER FOR IRRIG STERILE 1,500 ML BOTTLE IR ONE (05:42)
[2019-11-05] MEDS ORDERED: ceFAZolin/STERILE WATER 2 GM/20 ML SYRINGE IV ONE (05:42)
[2019-11-05] MEDS ORDERED: SODIUM BICARB 8.4% 50 MEQ/50 ML VIAL IV ONE ×3 (05:53→06:19)
[2019-11-05] MEDS ORDERED: ceFAZolin/Water 2 GM/20 ML 2 GM/20 ML SYRINGE IV NR (06:00)
[2019-11-05] MEDS ORDERED: LACTATED RINGERS 1,000 ML IV SCH (06:00)
[2019-11-05] MEDS ORDERED: propofoL 200 MG/20 ML VIAL IV ONE (06:06)
[2019-11-05] MEDS ORDERED: SUCCINYLCHOLINE CHLORIDE 200 MG/10 ML INJ MDV ONE ×2 (06:06→06:19)
[2019-11-05] MEDS ORDERED: KETAMINE/STERILE WATER 50 MG/ML SYRINGE ONE (06:07)
[2019-11-05] MEDS ORDERED: METHYLERGONOVINE MALEATE 0.2 MG/ML VIAL IM ONE (06:16)
[2019-11-05] MEDS ORDERED: BUPIVACAINE/PF (0.5%) 5 MG/1 ML 30 ML VIAL INFILTRATI ONE (06:19)
[2019-11-05] MEDS ORDERED: dexAMETHasone 20 MG/5 ML VIAL ONE (06:19)
[2019-11-05] MEDS ORDERED: ROCURONIUM 50 MG/5 ML INJ IV ONE (06:21)
[2019-11-05] MEDS ORDERED: ESMOLOL 100 MG/10 ML INJ IV ONE (06:21)
--- NOTE | 2019-11-05 07:01 | Operative Report ---
Operative Report Operative Report: Date of procedure: 11/05/2019 Pre-operative diagnosis: 37 weeks gestation Seizure disorder uncontrolled Multiple sclerosis Lupus Limited care History of chronic use of pain meds Post-operative diagnosis: Same plus uterine atony Procedure name(s): Primary low transverse section via Pfannenstiel skin incision Surgeon: Dr. Perez [employer] Worker: ROMAN Anesthesia: General endotracheal anesthesia EBL: 1 L Urine output: 100 mL of clear urine out at the end of the procedure Fluids: 1 L Findings: Liveborn female infant weight 6 pounds 4 ounces Apgars of 8 and 9 at 1 and 5 minutes Nuchal cord x1 easily reduced at the time of delivery Grossly normal fallopian tubes and ovaries bilaterally Normal uterus Indications: Patient presented to triage complaining of several seizures throughout the week patient was witnessed to have seizure while in triage. Patient was admitted and had 2 seizures upon admission. MFM was consulted decision was made to proceed with delivery at 37 weeks. Patient began induction of labor. Patient was noted to arrest at 4 cm dilated with thick meconium noted and inability to adequately trace contractions. Decision was made at this time to proceed with section due to failure to progress. All risks benefits and alternatives were discussed with patient. Consents were signed and placed on the chart. Procedure: Patient was taking to the operating room. Patient was then prepped and draped in sterile fashion after anesthesia was found to be adequate. A low transverse skin incision was made with the scalpel and carried down to the underlying layer of fascia with the Bovie. The fascia was then incised in the midline and this incision was extended bilaterally with the Bovie. The rectus muscles were then bluntly divided in the midline. The peritoneum was identified and entered into bluntly. The bladder blade was placed. A lower transverse uterine incision was made with the scalpel and extended bilaterally with the blunt dissection. The infant's head was then delivered atraumatically. Nuchal cord x1 was noted and easily reduced. The anterior shoulder and rest of delivered without difficulty. The umbilical cord was clamped x2. The cord was cut. The infant was then placed in sterile bassinet. The placenta was manually extracted in its entirety. The uterus was exteriorized and cleared of all clots and debris. The uterine incision was closed using 0 Vicryl in a running locking fashion. A second imbricating layer of the same suture was then created. The posterior cul-de-sac was copiously irrigated. The uterus was returned to the abdomen. The gutters were also irrigated. The anterior rectus muscles were reapproximated using 3-0 Vicryl. The anterior rectus fascia was reapproximated using 0 Vicryl in a running fashion. The subcuticular fat was reapproximated using 2-0 Vicryl in a running fashion. The skin was reapproximated with 4-0 Monocryl in a subcuticular stitch. The patient tolerated the procedure well. Sponge lap and needle counts were all correct x3. Patient was taken to the recovery room awake and in stable condition.
[2019-11-05] MEDS ORDERED: LANOLIN/ZINC/DIMETHICONE (LANSINOH) 7 GM TP PRN (07:02)
[2019-11-05] MEDS ORDERED: WITCH HAZEL/ GLYCERIN PAD TP PRN (07:02)
[2019-11-05] MEDS ORDERED: NALOXONE 0.4 MG/1 ML INJ IV PRN (07:02)
[2019-11-05] MEDS ORDERED: MORPHINE 2 MG/1 ML INJ IV PRN (07:02)
[2019-11-05] MEDS ORDERED: ONDANSETRON 4 MG/2 ML INJ IV PRN (07:17)
[2019-11-05] MEDS: levETIRAcetam 1,000 MG in DEXTROSE 5% IN WATER 100 ML IV SCH ×2 (07:46→22:12)
[2019-11-05] MEDS ORDERED: D5W/LACTATED RINGERS 1,000 ML IV SCH (08:00)
--- NOTE | 2019-11-05 09:37 | Post Anesthesia Evaluation ---
- Post Anesthesia Evaluation Patient Participated: Yes Airway Patent: Yes Stable Respiratory Function: Yes Nausea/Vomiting: No Temp > 96.8F: Yes Pain Manageable: Yes Adequeate Hydration: Yes Anesthesia Complications: No Block Receding Appropriately: Yes
[2019-11-05] MEDS: FERROUS SULFATE 325 MG TAB PO SCH (10:00)
[2019-11-05] MEDS: PRENATAL VIT27-FE FUMARATE-FOLIC ACID VIT TAB PO SCH (10:00)
[2019-11-05] MEDS: KETOROLAC 30 MG/1 ML INJ IV PRN ×2 (14:35→22:12)
[2019-11-05] MEDS: ceFAZolin/NS 1 GM/50 ML 1 GM/50 ML BAG IV SCH (14:36)
[2019-11-05 18:55] LABS: Hemoglobin 9.6 gm/dl (10.1-14.3)
[2019-11-05] MEDS ORDERED: ALPRAZolam 1 MG TAB PO PRN (20:35)
[2019-11-06] MEDS: ceFAZolin/NS 1 GM/50 ML 1 GM/50 ML BAG IV SCH (01:02)
[2019-11-06] MEDS: KETOROLAC 30 MG/1 ML INJ IV PRN (03:34)
[2019-11-06] MEDS ORDERED: IBUPROFEN 800 MG TAB PO PRN (07:00)
[2019-11-06] MEDS ORDERED: DIPHtheria,PERTUSSIS(ACELL),TETANUS VACCINE/PF 0.5 ML VIAL IM ONE (07:03)
--- NOTE | 2019-11-06 07:51 | Progress Note ---
Assessment and Plan - Patient Problems (1) Seizure disorder Current Visit: Yes Status: Acute Plan to address problem: Cont IV Keppra Change to po Keppra from tomorrow AM Subjective Date of service: 11/05/19 Principal diagnosis: IUP@37w0d s/p seizure; IOL Interval history: No seizures since last night Objective - Constitutional Vitals: Vital Signs - 12hr 11/06/19 11/06/19 11/06/19 00:19 00:21 01:03 Temperature 97.9 F 97.9 F Pulse Rate 66 70 73 Respiratory 18 18 16 Rate Blood Pressure 86/46 Blood Pressure 124/60 [Left] O2 Sat by Pulse 98 98 Oximetry 11/06/19 05:30 Temperature 97.9 F Pulse Rate 60 Respiratory 18 Rate Blood Pressure 97/51 Blood Pressure [Left] O2 Sat by Pulse 97 Oximetry General appearance: Present: no acute distress, well-nourished - EENT Eyes: PERRL, EOM intact ENT: hearing intact, clear oral mucosa Ears: bilateral: normal - Neck Neck: supple, normal ROM - Respiratory Respiratory effort: normal Respiratory: bilateral: CTA - Breasts Breasts: normal - Cardiovascular Heart rate: 76 Rhythm: regular Heart Sounds: Present: S1 & S2. Absent: gallop, rub Extremities: pulses intact, No edema, normal color, Full ROM - Gastrointestinal General gastrointestinal: Present: soft, non-tender, non-distended, normal bowel sounds - Genitourinary Female genitourinary: normal - Integumentary Integumentary: clear, warm, dry - Musculoskeletal Musculoskeletal: 1, strength equal bilaterally - Neurologic Neurologic: moves all extremities - Psychiatric Psychiatric: memory intact, appropriate mood/affect, intact judgment & insight - Labs CBC & Chem 7: 11/05/19 18:22 11/04/19 16:54 Labs: Abnormal lab results 11/05/19 11/05/19 Range/Units 18:22 18:24 Hgb 9.6 L (10.1-14.3) gm/dl Hct 29.0 L (30.3-42.9) % POC Glucose 150 H (70-105)
--- NOTE | 2019-11-06 07:54 | Progress Note ---
Assessment and Plan - Patient Problems (1) Seizure disorder Current Visit: Yes Status: Acute Plan to address problem: Cont IV Keppra Change to po Keppra this AM Cleared for discharge from medical stand point F/u with pcp/Neurology Christi Keenan or Fab Cohen Subjective Date of service: 11/06/19 Principal diagnosis: IUP@37w0d s/p seizure; IOL Interval history: No seizures since last 36 hrs Objective - Constitutional Vitals: Vital Signs - 12hr 11/06/19 11/06/19 11/06/19 00:19 00:21 01:03 Temperature 97.9 F 97.9 F Pulse Rate 66 70 73 Respiratory 18 18 16 Rate Blood Pressure 86/46 Blood Pressure 124/60 [Left] O2 Sat by Pulse 98 98 Oximetry 11/06/19 05:30 Temperature 97.9 F Pulse Rate 60 Respiratory 18 Rate Blood Pressure 97/51 Blood Pressure [Left] O2 Sat by Pulse 97 Oximetry General appearance: Present: no acute distress, well-nourished - EENT Eyes: PERRL, EOM intact ENT: hearing intact, clear oral mucosa Ears: bilateral: normal - Neck Neck: supple, normal ROM - Respiratory Respiratory effort: normal Respiratory: bilateral: CTA - Breasts Breasts: normal - Cardiovascular Heart rate: 78 Rhythm: regular Heart Sounds: Present: S1 & S2. Absent: gallop, rub Extremities: pulses intact, No edema, normal color, Full ROM - Gastrointestinal General gastrointestinal: Present: soft, non-tender, non-distended, normal bowel sounds - Genitourinary Female genitourinary: normal - Integumentary Integumentary: clear, warm, dry - Musculoskeletal Musculoskeletal: 1, strength equal bilaterally - Neurologic Neurologic: moves all extremities - Psychiatric Psychiatric: memory intact, appropriate mood/affect, intact judgment & insight - Labs CBC & Chem 7: 11/05/19 18:22 11/04/19 16:54 Labs: Abnormal lab results 11/05/19 11/05/19 Range/Units 18:22 18:24 Hgb 9.6 L (10.1-14.3) gm/dl Hct 29.0 L (30.3-42.9) % POC Glucose 150 H (70-105)
--- NOTE | 2019-11-06 08:08 | Progress Note ---
Assessment and Plan pt resting w/o complaints. denies additional seizure activity since admission. 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 Harris, zachary Meyer today. Cleared medically Subjective - Subjective Date of service: 11/06/19 Principal diagnosis: postop day #1 s/p primary c/s Patient reports: appetite normal, voiding normally, pain well controlled, flatus, ambulating normally, no dizzy ambulation, no nauseated [place]: doing well, bottle feeding Objective - Vital Signs Latest vital signs: Vital Signs Temp Pulse Resp BP BP Pulse Ox 11/06/19 05:30 97.9 F 60 18 97/51 97 11/06/19 01:03 73 16 124/60 11/06/19 00:21 97.9 F 70 18 86/46 98 11/06/19 00:19 97.9 F 66 18 98 11/05/19 19:18 98.0 F 72 19 116/56 97 11/05/19 19:00 97.7 F 73 18 112/41 95 11/05/19 17:55 75 98 11/05/19 17:50 72 99 11/05/19 17:45 83 98 11/05/19 17:40 77 99 11/05/19 17:36 71 128/60 11/05/19 17:35 76 98 11/05/19 17:30 83 98 11/05/19 17:25 80 98 11/05/19 17:20 85 98 11/05/19 17:15 75 99 11/05/19 17:10 67 99 11/05/19 17:05 74 98 11/05/19 17:00 98.4 F 64 100 11/05/19 16:55 65 100 11/05/19 16:50 75 99 11/05/19 16:45 73 99 11/05/19 16:40 93 H 98 11/05/19 16:36 63 110/55 05/25/20 16:35 77 97 05/25/20 16:30 66 98 05/25/20 16:25 70 98 05/25/20 16:20 66 98 05/25/20 16:15 69 97 05/25/20 16:10 66 97 05/25/20 16:05 65 97 05/25/20 16:00 65 97 05/25/20 15:55 68 97 05/25/20 15:50 69 97 05/25/20 15:45 63 97 05/25/20 15:40 65 97 05/25/20 15:36 62 97/58 05/25/20 15:35 61 97 05/25/20 15:30 64 97 05/25/20 15:25 65 97 05/25/20 15:20 77 97 05/25/20 15:15 77 97 05/25/20 15:10 87 97 05/25/20 15:05 88 98 05/25/20 15:00 63 98 05/25/20 14:55 63 98 05/25/20 14:50 81 97 05/25/20 14:45 64 97 05/25/20 14:40 72 98 05/25/20 14:36 72 103/57 05/25/20 14:35 81 98 05/25/20 14:30 66 97 05/25/20 14:25 68 97 05/25/20 14:20 64 98 05/25/20 14:15 64 97 05/25/20 14:10 69 97 05/25/20 14:05 69 98 05/25/20 14:00 70 97 05/25/20 13:55 67 97 05/25/20 13:50 66 98 05/25/20 13:45 80 97 05/25/20 13:40 62 98 05/25/20 13:35 66 97 05/25/20 13:30 63 98 05/25/20 13:25 76 98 05/25/20 13:20 68 96 05/25/20 13:15 73 98 05/25/20 13:10 67 98 05/25/20 13:05 72 98 05/25/20 13:00 61 98 05/25/20 12:55 77 98 05/25/20 12:50 66 98 05/25/20 12:45 65 99 05/25/20 12:40 66 99 05/25/20 12:35 75 98 05/25/20 12:30 66 98 05/25/20 12:25 69 99 05/25/20 12:20 72 98 05/25/20 12:15 62 98 05/25/20 12:10 66 98 05/25/20 12:05 66 98 05/25/20 12:00 65 98 05/25/20 11:55 73 99 05/25/20 11:50 73 98 05/25/20 11:45 72 98 05/25/20 11:40 64 98 05/25/20 11:35 71 99 05/25/20 11:30 70 98 05/25/20 11:25 75 99 05/25/20 11:20 66 98 05/25/20 11:15 62 98 05/25/20 11:10 64 98 05/25/20 11:05 71 98 05/25/20 11:00 75 98 05/25/20 10:55 70 98 05/25/20 10:50 73 99 05/25/20 10:45 68 98 05/25/20 10:40 61 98 05/25/20 10:35 82 97 05/25/20 10:30 65 97 05/25/20 10:25 66 98 05/25/20 10:20 67 98 05/25/20 10:15 68 98 05/25/20 10:10 71 99 05/25/20 10:05 78 97 05/25/20 10:00 63 99 05/25/20 09:55 69 99 05/25/20 09:50 68 99 05/25/20 09:45 65 99 05/25/20 09:40 63 99 05/25/20 09:35 69 98 05/25/20 09:30 71 99 05/25/20 09:25 68 98 05/25/20 09:20 73 97 05/25/20 09:15 69 99 05/25/20 09:10 70 99 05/25/20 09:05 59 L 99 05/25/20 09:00 69 97 05/25/20 08:30 98.1 F 18 05/25/20 08:25 64 13 123/70 05/25/20 08:15 69 18 122/71 Intake and Output 05/25/20 05/26/20 05/26/20 23:59 07:59 15:59 Output Total 650 Balance -650 Output: Urine 650 Indwelling Catheter 350 Void 300 Other: Total, Output Amount 300 # Voids Void 1 1 - Exam Breasts: Present: normal Cardiovascular: Present: Regular rate Lungs: Present: Clear to auscultation, Normal air movement Abdomen: Present: normal appearance, soft Vulva: both: normal Uterus: Present: normal, firm, fundal height above umbilicus Extremities: Present: normal Deep Tendon Reflex Grade: Normal +2 Incision: Present: normal, dry, intact - Labs Labs: Abnormal lab results 11/05/19 11/05/19 Range/Units 18:22 18:24 Hgb 9.6 L (10.1-14.3) gm/dl Hct 29.0 L (30.3-42.9) % POC Glucose 150 H (70-105)
[2019-11-06] MEDS: FERROUS SULFATE 325 MG TAB PO SCH (09:53)
[2019-11-06] MEDS: HYDROcodone/ACETAMINOPHEN 5-325 MG TAB PO PRN ×2 (09:53→13:56)
[2019-11-06] MEDS: PRENATAL VIT27-FE FUMARATE-FOLIC ACID VIT TAB PO SCH (09:53)
[2019-11-06] MEDS: levETIRAcetam 500 MG TAB PO SCH ×2 (09:53→21:22)
[2019-11-06] MEDS: FLUoxetine 20 MG CAP PO SCH (09:58)
[2019-11-07] MEDS: HYDROcodone/ACETAMINOPHEN 5-325 MG TAB PO PRN (01:55)
--- NOTE | 2019-11-07 08:17 | Discharge Summary ---
Providers - Providers Date of Admission: 11/04/19 16:44 Date of discharge: 11/07/19 (Pt stable for discharge home.) Attending physician: KARLA MENDENHALL 11/04/19 Consult to Case Management [CONS] Routine Services Needed at Discharge: Medicine Tech Notified:: no 11/04/19 19:54 Consult to Physician [CONS] Routine Comment: Consulting Provider: EDDIE PEARSON Physician Instructions: Reason For Exam: seizures; 36 weeks gestation Primary care physician: SAVI SNYDER Hospitalization Reason for admission: other (Having seizures while being seen in triage. ) Delivery: Episiotomy: none Laceration: none Incision: normal, dry, intact Other procedures: none complications: none Discharge diagnosis: IUP at term delivered [place] baby: female Pertinent studies: Spoke with pt regarding post op visit date and time: November 15 @ 3pm. Pt was requesting an afternoon appointment. Pt asked about Keppra dose. Explained to patient that this dose that she is on was recommended by internal medicine. When asked about how follows her patient did not give an answer. I updated patient on who was recommended for follow up and names given and patient states that she will follow up post discharge. Will print office numbers in discharge instructions. Hospital course: S: Pt is doing well. Voiding, ambulating, and passing flatus without difficulty. BC: Undecided. O: VSS. Fundus firm, minimal bleeding noted. Adequate I&O's. H/H 9.6/29.0 A: 29 y.o. s/p d/t seizures, uncontrolled. Limited PNC. Stable for discharge home. P: Discharge home with instructions. To keep scheduled post op appointment November 15. Condition at discharge: Good Disposition: DC-01 TO HOME OR SELFCARE Plan - Discharge Medications Prescriptions: Docusate Sodium [Colace] 100 mg PO BID PRN #60 capsule PRN Reason: Constipation Ferrous Sulfate [Feosol 325 MG tab] 325 mg PO QDAY #60 tablet levETIRAcetam [Keppra] 1,000 mg PO BID #60 udc levETIRAcetam [Keppra TAB] 1,000 mg PO BID #60 tab Ibuprofen [Motrin 800 MG tab] 800 mg PO Q8HR PRN #30 tablet PRN Reason: Pain, Moderate (4-6) oxyCODONE /ACETAMINOPHEN [Percocet 5/325] 1 tab PO Q4HR #30 tab - Provider Discharge Summary Activity: routine, no sex for 6 weeks, no heavy lifting 4 weeks, no strenuous exercise Diet: routine Instructions: routine Additional instructions: [] Smoking cessation referral if applicable(refer to patient education folder for contact #) [] Refer to [facility]'s [facility] Booklet Call your doctor immediately for: * Fever > 100.5 * Heavy vaginal bleeding ( >1 pad per hour) * Severe persistent headache * Shortness of breath * Reddened, hot, painful area to leg or breast * Drainage or odor from incision. * Keep incision clean and dry at all times and follow doctor's instructions regarding bathing/showering - Follow up plan Follow up: SAVI SNYDER MD [Primary Care Provider] - 7 Days (Congratulations!! Please keep scheduled post op appointment on November 15 at 3pm for your incision check. Please schedule an appointment with Dr. Rohan Keenan regarding seizure disorder. Office number [phone]. Please take all medications as prescribed. If you have any questions or concerns after discharge, please call the office at [phone]. ) Forms: [facility] Discharge Summary
[2019-11-07] MEDS: FERROUS SULFATE 325 MG TAB PO SCH (09:29)
[2019-11-07] MEDS: PRENATAL VIT27-FE FUMARATE-FOLIC ACID VIT TAB PO SCH (09:29)
[2019-11-07] MEDS: levETIRAcetam 500 MG TAB PO SCH (09:29)
[2019-11-07] MEDS: FLUoxetine 20 MG CAP PO SCH (09:31)
--- NOTE | 2019-11-07 10:51 | Progress Note ---
Assessment and Plan - Patient Problems (1) Seizure disorder Current Visit: Yes Status: Acute Plan to address problem: Changedto po [place] Cleared for discharge from medical stand point F/u with pcp/Neurology Dr Keenan or Fab Cohen Subjective Date of service: 11/07/19 Principal diagnosis: postop day #1 s/p primary c/s Interval history: No seizures since last 36 hrs Objective - Constitutional Vitals: Vital Signs - 12hr 11/06/19 11/07/19 23:50 09:31 Temperature 98.2 F 97.2 F L Pulse Rate 81 78 Respiratory 18 18 Rate Blood Pressure 110/49 107/51 [Left] O2 Sat by Pulse 97 Oximetry General appearance: Present: no acute distress, well-nourished - EENT Eyes: PERRL, EOM intact ENT: hearing intact, clear oral mucosa Ears: bilateral: normal - Neck Neck: supple, normal ROM - Respiratory Respiratory effort: normal Respiratory: bilateral: CTA - Breasts Breasts: normal - Cardiovascular Rhythm: regular Heart Sounds: Present: S1 & S2. Absent: gallop, rub Extremities: pulses intact, No edema, normal color, Full ROM - Gastrointestinal General gastrointestinal: Present: soft, non-tender, non-distended, normal bowel sounds - Genitourinary Female genitourinary: normal - Integumentary Integumentary: clear, warm, dry - Musculoskeletal Musculoskeletal: 1, strength equal bilaterally - Neurologic Neurologic: moves all extremities - Psychiatric Psychiatric: memory intact, appropriate mood/affect, intact judgment & insight - Labs CBC & Chem 7: 11/05/19 18:22 11/04/19 16:54
[2019-11-07 13:55] VITALS: BP 123/72
== END 2019-11-07 15:00 | disposition home or self-care (01) | DRG 765 ==
LOC: TRG 15:23 → APU 15:25 → OBSVTOIN 16:44 → TRG 16:44 → LD 16:44 → OB 11-05 06:45
PROVIDERS: ADMIT Obstetrics & Gynecology; ATTEND Obstetrics & Gynecology
PROC: 10D00Z1 Extraction of Products of Conception, Low, Open Approach (ICD-10-PCS; principal; 2019-11-05)
PROC: 3E0234Z Introduction of Serum, Toxoid and Vaccine into Muscle, Percutaneous Approach (ICD-10-PCS; 2019-11-06)
DX: O99.354 Diseases of the nervous system complicating childbirth (principal); D62 Acute posthemorrhagic anemia; G40.909 Epilepsy, unspecified, not intractable, without status epilepticus; F41.9 Anxiety disorder, unspecified; R51 Headache; O99.824 Streptococcus B carrier state complicating childbirth; O99.344 Other mental disorders complicating childbirth; O99.52 Diseases of the respiratory system complicating childbirth; O99.62 Diseases of the digestive system complicating childbirth; O99.214 Obesity complicating childbirth; E66.9 Obesity, unspecified; O62.2 Other uterine inertia; K21.9 Gastro-esophageal reflux disease without esophagitis; J45.909 Unspecified asthma, uncomplicated; Z3A.37 37 weeks gestation of pregnancy; Z37.0 Single live birth; Z23 Encounter for immunization; Z90.49 Acquired absence of other specified parts of digestive tract; O99.02 Anemia complicating childbirth
CPT/HCPCS: 36415; 76815; 76819; 80307; 81001; 82565; 82962; 83615; 84450; 84460; 84550; 85014; 85018; 85025; 86850; 86900; 86901; 88307; 90715; G0378; J0290; J0330; J0690; J1100; J1885; J1953; J2060; J2210; J2405; J2590; J2704; J2765; J3360; J3490; J7120; J7121